=== PATIENT | female | born 1985 | race Caucasian/White ===

== ENCOUNTER 2018-03-24 18:45 | Emergency (ER) | payer OTHER, SELFPAY ==
[2018-03-24 18:46] VITALS: BP 171/106; PULSE 95; RESP 16; TEMP 37.1; O2SAT 100; BMI 55.8
--- NOTE | 2018-03-24 18:57 | CT_ITS ---
STUDY: CT ABDOMEN AND PELVIS WITHOUT CONTRAST REASON FOR EXAM: Female, 33 years old. Stomach cramping and labial abscess RADIATION DOSAGE (If Supplied By Facility): CTDIvol = ( 23.89 ) mGy, DLP = ( 1582.49 ) mGycm TECHNIQUE: Transaxial images were obtained from the dome of the diaphragm to the symphysis pubis without oral contrast, and without intravenous contrast. Sagittal and coronal images were reconstructed. Individualized dose optimization techniques were used for this CT. COMPARISON: None. FINDINGS: The visualized lung bases are unremarkable. The visualized portions of the heart are within normal limits. Normal liver. Normal gallbladder and extrahepatic biliary system. Normal spleen. Normal pancreas. Normal bilateral adrenal glands. Normal right kidney. Normal left kidney. Normal visualized stomach. Normal small intestine. Minor diverticular changes in the distal descending colon without evidence for acute diverticulitis. The appendix is visualized and appears normal. Normal abdominal aorta. Normal inferior vena cava. Normal retroperitoneum. Normal urinary bladder. Small fat-containing umbilical hernia. Lumbar spine demonstrates mild spondylosis.. CT/Abdomen/Pelvis without Cont IMPRESSION: Minor diverticular changes of the distal descending colon without evidence for acute diverticulitis No evidence for small bowel obstruction or pneumoperitoneum No acute abnormalities. Electronically Signed: Eduardo Justice MD at 20:55 EDT , Service support ,
--- NOTE | 2018-03-24 19:02 | ED.VISSUMM ---
- ER Visit Summary Date of Service: 03/24/18 Chief Complaint: Abdominal cramping History of Present Illness: The patient is a 33 F to the emergency department with pelvic cramping. Patient describes it as she feels like I am . She states she began to have cramping today. She does have a history of polycystic ovarian syndrome, but denies ever having significant ovarian cyst. She is currently sexually active but does not think that she is . She is also concerned because she felt a lump on her labia today. She denies any discharge. She denies any vaginal bleeding. She has had no back pain. She has no history of kidney stone. Physical Examination: Vital signs reviewed General: Well-nourished, well-developed Head: Normocephalic, atraumatic Eyes: Pupils equal and reactive, extraocular muscles intact Neck, supple, no lymphadenopathy Heart: Regular rate and rhythm Respiratory: No distress, clear bilaterally Abdomen: Soft, nontender, nondistended, no peritoneal signs Back: Nontender Extremities: Nontender, no edema, no cords Skin: Normal color no rash Neuro: Alert and oriented, no focal or lateralizing deficits Test Results: [] Emergency Department Course and Treatment: Pelvic exam was done with female director e learning. There is some fullness of the left Bartholin's gland, but no abscess. There is no purulent drainage or induration. I do not feel incision and drainage is necessary at this time, but did sales counselor the patient she is going to need to follow-up with SHAKE CUTTER as this may mature into an abscess that needs drainage. She was comfortable with this plan of care. Her labs do show mild leukocytosis but otherwise unremarkable. CT does not show any acute intra-abdominal process. At this time, I am unsure of the acute etiology of the patient's pain. She does have a history of polycystic ovarian syndrome. This could easily be a small ruptured cyst that is just not evident on imaging. She is resting comfortably after analgesics. At this time, I do for the patient is safe for outpatient therapy. She will be prescribed anti-inflammatories and I will place her on doxycycline to prevent any secondary infection of the Bartholin's gland. She will be discharged home. Treatment Plan: [] Disposition: Discharge Impression:. Bartholin's gland cyst 2. Abdominal pain This note was generated with [employer] software. It may contain incorrect words, spelling, and punctuation that were not noted in review of the chart prior to signing ED Disposition - Plan for ED Patient: Chief Complaint: Abd Pain Instructions: ED Abdominal Pain Unkn Cause, ED Bartholins Cyst No Infec Prescriptions: Dicyclomine HCl [Bentyl] 20 mg PO TIDAC #20 cap Naproxen [Naprosyn] 500 mg PO BID PRN #20 tab Doxycycline Monohydrate 100 mg PO BID #14 cap Referrals: Stephanie Hightower DO [STAFF PHYSICIAN] -
[2018-03-24 19:24] LABS: Red Blood Cells-Urine 0 SEEN /hpf (0-5)
[2018-03-24 19:28] LABS: Color, Urine Yellow (Yellow); Glucose, Dipstick Normal (Normal); Ketone-Dipstick Negative (Negative); Leukocyte Esterase-Dipstick 25 /ul (Negative); Nitrite-Dipstick Negative (Negative); Occult Blood-Urine 50 /ul (Negative); Protein-Dipstick 15 mg/dl (Negative); Urine Bilirubin Dipstick Negative (Negative); Urine Clarity Clear (Clear); Urine Urobilinogen Normal (Normal)
[2018-03-24] MEDS: Morphine 4 MG/ML Syringe IV (19:29)
[2018-03-24] MEDS: Ondansetron 4 MG/2 ML Vial IV (19:29)
[2018-03-24] MEDS: 0.9% Normal Saline 1,000 ML 125 ML IV (19:29)
[2018-03-24 19:50] LABS: Absolute Neutrophil Count 9.9 X10^3/uL (2.0-7.7); Basophil# 0.03 X10^3/uL; Basophil% 0.2 % (0-1); Eosinophil# 0.23 X10^3/uL; Eosinophils% 1.7 % (0-5); Hematocrit 37.2 % (37-47); Hemoglobin 11.4 g/dl (12.0-15.0); Lymphocyte % 16.3 % (19-41); Mean Corp Hgb Conc 30.6 g/gl (32-36); Mean Corpuscular Hgb 24.6 pg (27.0-32.0); Mean Corpuscular Volume 80.3 fL (81-99); Mean Platelet Vol. 10.4 fl (6.2-12.0); Monocyte# 1.14 X10^3/uL; Monocyte% 8.4 % (0-10); Neutrophil % 73.2 % (47-70); Platelet Count 175 K/mm3 (150-450); RBC Distribution Width CV 15.7 % (11.6-14.6); RBC Distribution Width SD 45.9 fl (35.1-43.9); Red Blood Count 4.63 M/mm3 (4.2-5.4); White Blood Count 13.5 K/mm3 (4.4-11.0)
[2018-03-24 19:51] LABS: POSITIVE COUNT NO; POSITIVE DIFFERENTIAL NO; POSITIVE MORPHOLOGY NO
[2018-03-24 19:51] LABS: Bacteria 1+ /hpf (None Seen); Mucous, Urine RARE /hpf (<or=2+); Squamous Epithelial Cells - UA 0-5 SEEN /hpf (5-10); White Blood Cells 0-5 SEEN /hpf (0-5)
[2018-03-24 20:01] LABS: ALB/GLOB Ratio 0.9 RATIO (0.9-2.4); AST(SGOT) 23 U/L (15-37); Alanine Aminotransfer ALT/SGPT 16 U/L (13-56); Albumin, Serum 3.4 g/dL (3.2-5.0); Alkaline Phosphatase 80 U/L (45-117); Anion Gap 9 (5-15); BUN 9 mg/dL (7-18); BUN/Creat Ratio 11.2 RATIO (10-20); Calcium,Total 8.6 mg/dL (8.5-10.1); Chloride 107 mmol/L (98-107); EST Glomerular Filtration Rate 89 mL/min (>60); Est Glom Filt Rate - Afr Amer 108 mL/min (>60); Estimated Creatinine Clearance 95.38 ml/min; Globulin 3.7 g/dL (2.2-4.2); Glucose 103 mg/dL (74-106); Potassium 4.1 mmol/L (3.5-5.1); Protein, Total 7.1 g/dL (6.4-8.2); Sodium Level 138 mmol/L (136-145)
[2018-03-24 20:07] LABS: Pregnancy, Serum, hCG Quali. NEGATIVE Negative (0-9 Nonpreg)
[2018-03-24 21:19] VITALS: BP 140/91; PULSE 75; RESP 18; O2SAT 100
--- NOTE | 2018-03-24 21:20 | ED.RN ---
REVIEWED D/C INSTRUCTIONS, FOLLOW UP CARE, PRESCRIPTIONS, AND S/S THAT WOULD WARRANT A RETURN TO THE ED WITH PT. PT VERBALIZED AN UNDERSTANDING AND DENIES FURTHER QUESTIONS FOR THIS RN. PT SKIN P/W/D, RESP EVEN AND UNLABORED, PT A&O X 3, NO DISTRESS NOTED. PT AMBULATED OUT OF ED, GAIT STEADY.
== END 2018-03-24 21:21 | disposition home or self-care (01) ==
PROVIDERS: Emergency Provider Emergency Medicine
DX: N75.0 Cyst of Bartholin's gland (principal); R10.2 Pelvic and perineal pain; E28.2 Polycystic ovarian syndrome; E66.9 Obesity, unspecified
CPT/HCPCS: 74176; 80053; 81001; 84703; 85025; 96361; 96374; 96375; 99285; J7030; A4216

== ENCOUNTER 2018-03-27 16:20 | Emergency (ER) | payer OTHER, SELFPAY ==
[2018-03-27 16:21] VITALS: BP 165/102; PULSE 110; RESP 18; TEMP 37.6; O2SAT 98; BMI 54.8
--- NOTE | 2018-03-27 17:02 | ED.VISSUMM ---
- ER Visit Summary Date of Service: 03/27/18 Chief Complaint: Left external cyst or abscess History of Present Illness: The patient is a 33 F has had a prior Bartholin's cyst or abscess. States she was seen here several days ago for ruptured ovarian cyst. At that time on her pelvic exam they saw inflammation of her labia and start her on doxycycline. She said she has been throwing up when she tries to keep it down. She is complaining of more pain and would like this drained. Physical Examination: Well-appearing female. No acute distress. Vital signs are stable and she is afebrile. She does not look septic or toxic. HEENT exam unremarkable. Neck nontender no lymphadenopathy. Lungs clear to auscultation bilaterally. Heart regular rhythm no murmur. Abdomen morbidly obese but soft nontender nondistended no organomegaly or masses. Normal bowel sounds no peritoneal signs. Moving all 4 extremities. Neurologically she is awake and alert. Her external region with the nurse present in the room on her labia minora on day there is no cellulitis. There is mild tenderness to palpation. This is probably an early Bartholin's cyst or abscess. There is minimal fluctuance. Test Results: None Emergency Department Course and Treatment: A female RN present in the room. The left Bartholin abscess was locally anesthetized with subcu lidocaine. Let had previously been applied. I then made 1/2-1 cm incision with an 11 blade. Expressed more than 5 cc of pus. Placed several inches of quarter inch packing gauze to allow this to continue to drain. And instructed patient of care and to follow-up with her DRILL GRINDER physician. She was given 2 [place] here for pain. Treatment Plan: [place] for pain. She is currently on doxycycline which she will continue. And follow-up with [facility] [place]. Disposition: Discharge Impression: Left labia minora: Abscess Incision and drainage by ER This note was generated with [employer] dictation software. It may contain incorrect words, spelling, and punctuation that were not noted in review of the chart prior to signing ED Disposition - Plan for ED Patient: Chief Complaint: Abscess Referrals: Care Physician,No Primary [Primary Care Provider] -
--- NOTE | 2018-03-27 17:05 | ED.DCSUM_ITS ---
- ER Visit Summary Date of Service: 03/27/18 Chief Complaint: Left external cyst or abscess History of Present Illness: The patient is a 33 F has had a prior Bartholin's cyst or abscess. States she was seen here several days ago for ruptured ovarian cyst. At that time on her pelvic exam they saw inflammation of her labia and start her on doxycycline. She said she has been throwing up when she tries to keep it down. She is complaining of more pain and would like this drained. Physical Examination: Well-appearing female. No acute distress. Vital signs are stable and she is afebrile. She does not look septic or toxic. HEENT exam unremarkable. Neck nontender no lymphadenopathy. Lungs clear to auscultation bilaterally. Heart regular rhythm no murmur. Abdomen morbidly obese but soft nontender nondistended no organomegaly or masses. Normal bowel sounds no peritoneal signs. Moving all 4 extremities. Neurologically she is awake and alert. Her external region with the nurse present in the room on her labia minora on day there is no cellulitis. There is mild tenderness to palpation. This is probably an early Bartholin's cyst or abscess. There is minimal fluctuance. Test Results: None Emergency Department Course and Treatment: A female RN present in the room. The left Bartholin abscess was locally anesthetized with subcu lidocaine. Let had previously been applied. I then made 1/2-1 cm incision with an 11 blade. Expressed more than 5 cc of pus. Placed several inches of quarter inch packing gauze to allow this to continue to drain. And instructed patient of care and to follow-up with her CAMP ATTENDANT physician. She was given 2 [place] here for pain. Treatment Plan: [place] for pain. She is currently on doxycycline which she will continue. And follow-[facility] with [email or web address] Disposition: Discharge Impression: Left labia minora: Abscess Incision and drainage by ER This note was generated with [employer] dictation software. It may contain incorrect words, spelling, and punctuation that were not noted in review of the chart prior to signing ED Disposition - Plan for ED Patient: Chief Complaint: Abscess Referrals: Care Physician,No Primary [Primary Care Provider] -
[2018-03-27] MEDS: Lidocaine/Epi/Tetracaine 50 ML 1 APPLIC TOPICAL (17:13)
[2018-03-27 19:15] VITALS: BP 150/109; PULSE 100; RESP 18; O2SAT 98
--- NOTE | 2018-03-27 19:16 | ED.DEP ---
ED Disposition - Plan for ED Patient: Disposition: Home or Assisted Living Chief Complaint: Abscess Instructions: ED Abscess IandD Prescriptions: Hydrocodone/Acetaminophen [[place] 5-325 Tablet] 1 ea PO Q4H PRN PRN #20 tab PRN Reason: Pain Referrals: Alma Cesar MD [STAFF PHYSICIAN] - As soon as possible Additional Instructions: Warm soaks to allow this to continue to drain. Motrin and limited [place] for pain. Remove the packing in 4 days. If it falls out before that you cannot replace it. Call and follow-up with your PSYCHOSOCIAL REHABILITATION COUNSELOR physician.
== END 2018-03-27 19:25 | disposition home or self-care (01) ==
PROVIDERS: Emergency Provider Emergency Medicine
DX: N75.1 Abscess of Bartholin's gland (principal); Z72.0 Tobacco use; Z79.2 Long term (current) use of antibiotics
CPT/HCPCS: 56420; 99285

== ENCOUNTER 2019-01-17 09:58 | Emergency (ER) | payer MEDICAID, SELFPAY ==
[2019-01-17 09:59] VITALS: BP 140/86; PULSE 76; RESP 16; TEMP 36.4; O2SAT 94; BMI 53.6
--- NOTE | 2019-01-17 10:19 | RAD_ITS ---
STUDY: X-RAY - LEFT ANKLE REASON FOR EXAM: Female, 34 years old. Left ankle injury, pain, soft tissue swelling TECHNIQUE: 3 view(s) of the ankle. COMPARISON: None. FINDINGS: Normal visualized distal tibia and fibula. Transverse fracture (nondisplaced) of the distal lateral malleolus identified with mild overlying soft tissue swelling. Normal tibiotalar articulation and ankle mortise. There is a small bony density medial to the talus seen on the AP view. There is mild soft tissue swelling. The visualized subtalar, talonavicular, calcaneocuboid and tarsal articulations are normal. The soft tissue structures are otherwise unremarkable. RAD/Ankle min 3 Views IMPRESSION: 1. Nondisplaced [place] A lateral malleolus fracture. 2. Suspect small avulsion injury of the medial ankle adjacent to talus. Electronically Signed: Jae Witt MD at 11:00 EDT , Service support ,
--- NOTE | 2019-01-17 10:21 | ED.DCSUM_ITS ---
- ER Visit Summary Date of Service: 01/17/19 Chief Complaint: [Injury left ankle] History of Present Illness: The patient is a 34 F [presents the emergency department via EMS from her quaker. Patient states that she was walking when her ankle inverted and she heard a pop. Patient fell to the floor and landed on her right knee. Denies striking her head or loss of consciousness. Patient unable to bear weight afterwards. Patient rates her pain a 10 out of 10.] Physical Examination: [HEENT-PERRLA, EOMI. Cranial nerves II through XII grossly intact. TMs clear. Mucous membranes moist. No adenopathy. Cardiovascular-regular rate and rhythm without murmur or ectopy Lungs-clear to auscultation, chest wall stable without crepitus or subcu emphysema Abdomen-normoactive bowel sounds, soft, nontender, no rebound or rigidity, no peritoneal signs. Extremities-intact ?4, normal range of motion, normal pulses. Left ankle- patient has soft tissue swelling over the lateral malleolus with tenderness to palpation. No obvious deformity otherwise. Patient neurovascular intact di stally. No pain at the proximal fibular head. No pain at the base of the fifth metatarsal.] Test Results: [X-rays of the left ankle showed fracture of the distal fibula avulsion type [place] A.] Emergency Department Course and Treatment: [Patient was placed in a walking boot and given crutches. Patient was given 1 [place] for pain.] Treatment Plan: [Patient advised to ice and elevate the extremity. Patient to follow-up with orthopedics within next 3-5 days. Patient given a prescription for [place] for pain.] Disposition: [Discharged home in stable condition] Impression: [Left distal fibula fracture] This note was generated with [employer] dictation software. It may contain incorrect words, spelling, and punctuation that were not noted in review of the chart prior to signing ED Disposition - Plan for ED Patient: Referrals: Care Physician,No Primary [Primary Care Provider] -
[2019-01-17] MEDS: HYDROcodone Bitartrate/Apap 5/325 Tablet PO (10:37)
--- NOTE | 2019-01-17 10:58 | DCINST.ED_ITS ---
ED Disposition - Plan for ED Patient: Instructions: ED Fx Ankle Lateral Malleolus Prescriptions: Hydrocodone Bitart/Apap 5-325 [[place] 5MG-325MG] 1 tab PO Q4H PRN PRN 2 Days #20 tab PRN Reason: Pain Referrals: Care Physician,No Primary [Primary Care Provider] - Piero Beauchamp DO [STAFF PHYSICIAN] - 3-5 Days
== END 2019-01-17 11:35 | disposition home or self-care (01) ==
LOC: ED 10:39
PROVIDERS: Emergency Provider Emergency Medicine
DX: S82.832A Other fracture of upper and lower end of left fibula, initial encounter for closed fracture (principal); Z72.0 Tobacco use; X50.1XXA Overexertion from prolonged static or awkward postures, initial encounter; Y93.01 Activity, walking, marching and hiking; Y92.22 Religious institution as the place of occurrence of the external cause; Y99.8 Other external cause status
CPT/HCPCS: 73610; 99285

== ENCOUNTER → 2019-01-23 13:15 | Outpatient (CLI) | payer MEDICAID, SELFPAY ==
[2019-01-23 12:45] VITALS: BMI 53.6
--- NOTE | 2019-01-23 13:20 | RAD_ITS ---
STUDY: X-RAY - RIGHT ANKLE REASON FOR EXAM: Female, 34 years old. Comparison images TECHNIQUE: Three view(s) of the ankle were obtained. COMPARISON: Left ankle images dated January 17, 2019 FINDINGS: Bones: There are no acute osseous abnormalities. There are small spurs off the inferior and posterior calcaneus. Joints: The visualized joints are unremarkable. Soft tissues: Coarse calcific densities are seen in the soft tissues just below the medial malleolus. There is very mild soft tissue swelling. RAD/Ankle min 3 Views IMPRESSION: No acute abnormalities are seen. Probable old avulsion fragments are seen below the medial malleolus. Electronically Signed: Stephanie Alonzo MD at 14:13 EDT , Service support ,
== END ==
PROVIDERS: Referring Provider Physician Assistant; Visit Provider Physician Assistant
DX: M25.571 Pain in right ankle and joints of right foot (principal)
CPT/HCPCS: 73610

== ENCOUNTER 2019-12-30 19:25 | Outpatient (CLI) | payer MEDICAID, SELFPAY ==
[2019-01-23 12:45] VITALS: BMI 53.6
[2019-12-30 19:57] VITALS: PULSE 92; O2SAT 97
[2019-12-30 19:59] VITALS: BP 123/57; PULSE 90; TEMP 97.8
[2019-12-30 20:06] VITALS: BMI 265.3
[2019-12-30 20:34] LABS: ROM Internal Control Test YES-OK TO RESULT pt. (Internal QC); ROM Patient Test Negative (Negative)
--- NOTE | 2019-12-31 00:18 | OB.TRI.NOTE ---
History of Present Illness Date of Service: 12/31/19 Was patient seen by the physician?: No Reason For Visit: RULE OUT RUPTURE Date of Service: 12/30/19 Final RENEE: 02/08/20 Final RENEE Source: US <20 weeks Gestational age: 34 Weeks and 3 Days Allergies Penicillins Allergy (Verified 12/30/19 21:09) Hives Laboratory Studies: Laboratory Tests 12/30/19 Range/Units 19:42 Vag Amniotic Fld Detect Negative (Negative) NST - FHR Rate Baby A Baseline: 130 Variability:: Moderate Accelerations:: 15 x 15 Decelerations:: None NST Reactive:: Yes FHR Category:: Category I Uterine Activity:: irritability at times Impression/Plan 34yo @ 34+ weeks, membranes intact, not in labor 1) ROM+ negative 2) cerclage in place 3) Dc home - follow up as scheduled in office
[2020-01-10 23:16] VITALS: TEMP 36.8
[2020-01-10 23:17] VITALS: BP 107/60; PULSE 96
== END 2019-12-30 21:25 | disposition home or self-care (01) ==
LOC: WPOUT 19:49 → OBT 19:49
PROVIDERS: Visit Provider Obstetrics & Gynecology
DX: Z03.71 Encounter for suspected problem with amniotic cavity and membrane ruled out (principal)
CPT/HCPCS: 59025; 59050; 84112; 99218; G0378

== ENCOUNTER 2020-01-10 22:40 | Outpatient (CLI) | payer MEDICAID, SELFPAY ==
[2020-01-10 23:17] VITALS: BP 107/60; PULSE 96; TEMP 36.8; O2SAT 98
[2020-01-10 23:18] VITALS: PULSE 92; O2SAT 98
[2020-01-10 23:30] VITALS: BMI 49.2
[2020-01-11 00:47] LABS: Glucose, Dipstick 1000 mg/dl (Normal); Ketone-Dipstick 5 mg/dl (Negative); Leukocyte Esterase-Dipstick 25 /ul (Negative); Mucous, Urine 0 SEEN /hpf (<or=2+); Nitrite-Dipstick Negative (Negative); Occult Blood-Urine 10 /ul (Negative); Protein-Dipstick 15 mg/dl (Negative); Urine Bilirubin Dipstick Negative (Negative); Urine Urobilinogen 1 mg/dl (Normal)
[2020-01-11 00:49] LABS: Color, Urine Yellow (Yellow); Urine Clarity Sl Cldy (Clear)
[2020-01-11 00:54] LABS: Amorphous Sediment 1+; Bacteria 2+ /hpf (None Seen); Red Blood Cells-Urine 0-5 SEEN /hpf (0-5); Squamous Epithelial Cells - UA 0-5 SEEN /hpf (5-10); White Blood Cells 5-10 SEEN /hpf (0-5)
--- NOTE | 2020-01-12 12:47 | OB.TRI.NOTE ---
History of Present Illness Was patient seen by the physician?: No Reason For Visit: C/O Date of Service: 01/10/20 Final RENEE: 02/08/20 Final RENEE Source: US >20 weeks Gestational age: 36 Weeks and 1 Days Allergies Penicillins Allergy (Verified 01/10/20 23:30) Hives Laboratory Studies: Laboratory Tests 01/11/20 Range/Units 00:30 Urine Color Yellow (Yellow) Urine Clarity Sl Cldy (Clear) Urine pH 5.0 (5.0 - 8.0) Ur Specific [place] 1.030 (1.002-1.030) Urine Protein 15 H (Negative) mg/dl Urine Glucose (UA) 1000 H (Normal) mg/dl Urine Ketones 5 H (Negative) mg/dl Urine Occult Blood 10 H (Negative) /ul Urine Nitrite Negative (Negative) Urine Bilirubin Negative (Negative) mg/dL Urine Urobilinogen 1 H (Normal) mg/dl Ur Leukocyte Esterase 25 H (Negative) /ul Urine RBC 0-5 SEEN (0-5) /hpf Urine WBC 5-10 SEEN (0-5) /hpf Ur Squamous Epith Cells 0-5 SEEN (5-10) /hpf Amorphous Sediment 1+ Urine Bacteria 2+ (None Seen) /hpf Urine Mucus 0 SEEN (<or=2+) /hpf Physical Exam Vitals: Vital Signs Temp Pulse BP Pulse Ox 98.3 F 92 107/60 98 01/10/20 23:17 01/10/20 23:18 01/10/20 23:17 01/10/20 23:18 NST - FHR Rate Baby A Baseline: 135 Variability:: Moderate Accelerations:: 15 x 15 NST Reactive:: Yes Uterine Activity:: Irregular Impression/Plan NST reactive for threatened PTL
== END 2020-01-11 02:05 | disposition home or self-care (01) ==
LOC: WPOUT 23:18 → WP 23:19
PROVIDERS: Visit Provider Advanced Practice Midwife
DX: O47.03 False labor before 37 completed weeks of gestation, third trimester (principal); Z3A.36 36 weeks gestation of pregnancy
CPT/HCPCS: 59025; 59050; 81001; 87086; 87088; 99218; G0378

== ENCOUNTER 2020-01-19 05:16 | Inpatient (IN) | payer MEDICAID, SELFPAY ==
[2020-01-19] VITALS (19 sets, daily range): BP systolic 85–121; BP diastolic 37–72; PULSE 68–96; RESP 16–18; TEMP 36.1–36.9; O2SAT 96–100; BMI 49.4
[2020-01-19] MEDS: Lactated Ringers 1,000 ML 999 ML IV (05:35)
[2020-01-19 05:56] LABS: Bedside Glucose 133 mg/dL (70-110)
[2020-01-19 06:05] LABS: Absolute Lymphocyte Count 2.09 X10^3/uL (0.83-4.51); Absolute Neutrophil Count 7.6 X10^3/uL (2.0-7.7); Basophil# 0.05 X10^3/uL; Basophil% 0.5 % (0-1); Eosinophil# 0.13 X10^3/uL; Eosinophils% 1.2 % (0-5); Hematocrit 34.3 % (37-47); Hemoglobin 10.8 g/dL (12.0-15.0); Lymphocyte # 2.09 X10^3/ul (4.0); Lymphocyte % 19.4 % (19-41); Mean Corp Hgb Conc 31.5 g/dL (32-36); Mean Corpuscular Hgb 25.6 pg (27.0-32.0); Mean Corpuscular Volume 81.3 fL (81-99); Mean Platelet Vol. 11.6 fl (6.2-12.0); Monocyte# 0.78 X10^3/uL; Monocyte% 7.2 % (0-10); NRBC Flagged by Analyzer 0 % (0-5); Neutrophil # 7.64 X10^3/uL (2.7-7.7); Neutrophil % 70.7 % (47-70); Platelet Count 165 K/mm3 (150-450); RBC Distribution Width CV 15.8 % (11.6-14.6); RBC Distribution Width SD 46.5 fl (35.1-43.9); Red Blood Count 4.22 M/mm3 (4.2-5.4); White Blood Count 10.8 K/mm3 (4.4-11.0)
[2020-01-19 06:38] LABS: Amphetamine Urine VISTA NEGATIVE (<1000 ng/mL); Barbiturate Urine VISTA NEGATIVE (< 200 ng/mL); Benzodiazepine Urine VISTA NEGATIVE (< 200 ng/mL); Cocaine Urine VISTA NEGATIVE (< 300 ng/mL); Ecstacy Urine VISTA NEGATIVE (< 500 ng/mL); Methadone Urine VISTA NEGATIVE (< 300 ng/mL); PCP Urine VISTA NEGATIVE (< 25 ng/mL); THC Urine VISTA NEGATIVE (< 50 ng/mL); Vista UDS pH Range 5
[2020-01-19] MEDS: Lactated Ringers 1,000 ML 150 ML IV (06:45)
[2020-01-19] MEDS: Sodium Citrate/Citric Acid 30 ML UDC PO (07:09)
--- NOTE | 2020-01-19 08:20 | FALS_PTH ---
PATIENT: PATI MARTINEZ LOC: [facility] U#:[id number] AGE/SX: 35/F ROOM: WP005 RE01/19/[address]: Dr. Nubia Moctezuma MD : 1985 BED: 1 DIS: 01/22/2020 SPEC #: [id number] RECD: 01/19/20 12:10 STATUS: ROSE ROMMEL #: [id number] TG: 01/19/20 08:[address]: Nubia Moctezuma DEPT: SURGICAL PATHOLOGY RECD BY: Srikanth Zuniga ENTERED: 01/19/20 12:18 SP TYPE: FALL TUBES OTHR DR: No Primary Care Phys Tissues: Fallopian tube Procedures: Surgery Specimen Level II HEADER OPERATION: Tubal ligation PRE-OP DIAGNOSIS: Sterilization, repeat TISSUE SUBMITTED: Fallopian tubes, right with suture MICROSCOPIC DIAGNOSIS Right and left fallopian tubes, bilateral partial salpingectomies: Two complete segments of fallopian tubes with no pathologic change. AM:eric 01/20/20 MICROSCOPIC DESCRIPTION Slides are reviewed. GROSS DESCRIPTION Received is one container labeled with the patient's name and designated bilateral fallopian tubes, right with string. The specimen consists of two tubular pieces of zaldivar soft tissue with the right identified with a string. The right fallopian tube measures 1 cm in length and 0.6 cm in diameter. The left fallopian tube measures 1 cm in length and 0.6 cm in diameter. The entire specimen is submitted in two cassettes as follows: 1 - right fallopian tube, 2 - left fallopian tube. Both pieces will be sectioned at the time of embedding. / WILIAN:eric 01/19/20 TC:4 CPT: 26270 x2
--- NOTE | 2020-01-19 09:06 | PCM.HP.OB ---
History Date of Admission: 01/19/20 Final RENEE: 02/08/20 Final RENEE Source: US >20 weeks Gestational age: 37 Weeks and 1 Days Medical History: Medical History (Last Updated 01/19/20 @ 09:[address] Nubia Moctezuma) delivery delivered O82 Gestational diabetes O24.419 History of bronchitis Z87.09 Surgical History: Surgical History (Last Updated 01/19/20 @ 09:[address] Nubia Moctezuma) History of cervical cerclage Z98.890 Allergies Penicillins Allergy (Verified 01/19/20 06:54) Hives Home Medications: Home Medications Vits [Prenatabs FA] 1 tab PO DAILY 12/30/19 Smoking Status: Current every day smoker Substance Use Type: Marijuana Number of Fetus(es): 1 History Past Pregnancies: Past Pregnancies Delivery Date Name GA/ Weeks Outcome Route Wt Sex Labor Length Anesthesia Delivery Location Provider FOB Physical Exam Vitals: Vital Signs Temp Pulse BP Pulse Ox 97.7 F L 85 121/72 H 96 01/19/20 05:59 01/19/20 05:59 01/19/20 05:59 01/19/20 05:59 Assessment/Plan This is a 35 year-old, G3, P1101, at 37&1 weeks gestational age. Admit for repeat with bilateral tubal ligation. GDM - check BS pre & post-op and FBS in AM Pre-op ancef ordered Please see [facility] H&P and prenatals Cough - patient with h/o recurrent bronchitis, s/p primary care aval last week
--- NOTE | 2020-01-19 09:08 | PCM.OPRPT ---
Report of Operation Surgery/Procedure Performed:: Low transverse and bilateral tubal ligation Description of Surgical Findings:: Normal maternal uterus and adnexa Delivery Classification: Scheduled Final RENEE: 02/08/20 Gestational age: 37 Weeks and 1 Days leadership intern: Patricia Gandhi Type of Anesthesia:: Spinal Date of Procedure: 01/19/20 Pre-Operative Diagnosis: (1) Poorly controlled gestational diabetes (2) Prior section (3) Sterilization request Post-Operative Diagnosis: Same Indications for : Repeat Elective , Desires elective sterilization Description of Procedure: Patient taken to OR where spinal anesthesia was placed. She was prepped and draped in the normal sterile fashion in a dorsal supine position with a leftward tilt. After ensuring adequacy of anesthesia the Pfannensteil skin incision was made and carried through to the underlying fascia with a scalpel. The fascia was incised in the midline and carried laterally with the Martin scissors. The rectus muscles were in the midline and the peritoneum was entered carefully. The bladder flap was dissected down carefully with the Metzenbaum scissors and blunt dissection. The uterus was incised in a transverse fashion and then incision extended with cephalocaudad traction. The fetus was vertex and the head was elevated to the uterine incision. With fundal pressure the head delivered. head was gently guided to allow delivery of anterior and posterior shoulders. No excess traction placed on head. Body delivered and 3VC clamped & cut in slightly delayed fashion. Then the was handed off to the waiting RN. The placenta was delivered with gentle traction and fundal massage and the uterus was exteriorized and cleared of all clots and debris. The uterine incision was closed with 1 vicryl suture in a running locked fashion. The bovie was used to obtain further hemostasis of the uterine incision. A second imbricating layer of monocryl was placed. 2 additional figure of 8 sutures was placed on the uterine incision to further obtain hemostasis. Attention then turned to the fallopian tubes. Right fallopian tube grasped with a gael, doubly suture ligated and tubal segment excised. This procedure was repeat on the left fallopian tube. The uterus was returned to the peritoneal cavity. Tubal ligation sites were both checked and confirmed hemostatic with sutures intact. The pelvis was irrigated & then cleared of all clots and debris. The uterine incision was reexamined and found to be hemostatic. Some joana was placed over the uterine incision due to the denuded areas. The fascia was closed with looped PDS suture in a running standard fashion. 1% lidocaine was injected to the skin to provide additional postoperative analgesia. The subcutaneous tissue was examined & any bleeding bovie cauterized. The subcutaneous tissue was reapproximated with plain gut suture. The skin was closed in a subcuticular fashion by the PUMPING STATION SUPERVISOR with me present in the labor and delivery suite. I performed the remainder of the procedure w/ assistance. Amniotic Membrane Rupture Type: Artificial Amniotic Fluid Description: Clear Placenta Disposition: [facility] Drain: Vázquez to straight drain Fluids Replaced: 1,000ml Cord Entanglement: None Cord Vessel Description: 3 Vessels Esitmated Blood Loss (ml): 700ml Gender: Male - Zach, weight = 8-8 (1 minute): 8 (5 minute): 9 Delayed cord clamping: Yes Antibiotic Given: Ancef 3 grams IV x1 Complications: None - Admit VTE Documentation VTE Present on Admission: No
[2020-01-19] MEDS: Lactated Ringers 1,000 ML 100 ML IV ×2 (09:56→20:14)
[2020-01-19] MEDS: Oxytocin 30 units/NS 500 ml 30 UNITS/500 ML IV.SOLN 167 UNITS IV (09:57)
[2020-01-19 11:40] LABS: Bedside Glucose 143 mg/dL (70-110)
[2020-01-19] MEDS: Ketorolac 30 MG/ML Syringe IV ×2 (14:03→20:18)
[2020-01-19] MEDS: Senna/Docusate Sodium 1 Tablet PO (17:29)
[2020-01-19] MEDS: Enoxaparin 40 MG/0.4 ML Syringe SC (20:19)
[2020-01-20] VITALS (8 sets, daily range): BP systolic 101–110; BP diastolic 40–54; PULSE 64–78; RESP 16–18; TEMP 36.2–36.5; O2SAT 96–99
[2020-01-20] MEDS: Acetaminophen 500 MG Tablet 1000 MG PO (00:19)
[2020-01-20] MEDS: Ketorolac 30 MG/ML Syringe IV ×4 (01:57→20:04)
[2020-01-20 06:11] LABS: Bedside Glucose 121 mg/dL (70-110)
[2020-01-20 06:15] LABS: Hematocrit 25.9 % (37-47); Hemoglobin 8.2 g/dL (12.0-15.0); Mean Corp Hgb Conc 31.7 g/dL (32-36); Mean Corpuscular Hgb 26.1 pg (27.0-32.0); Mean Corpuscular Volume 82.5 fL (81-99); Mean Platelet Vol. 11.6 fl (6.2-12.0); Platelet Count 124 K/mm3 (150-450); RBC Distribution Width CV 15.9 % (11.6-14.6); RBC Distribution Width SD 47.9 fl (35.1-43.9); Red Blood Count 3.14 M/mm3 (4.2-5.4); White Blood Count 10.6 K/mm3 (4.4-11.0)
--- NOTE | 2020-01-20 08:21 | PN.OBGYN_ITS ---
Subjective: Patient seen at bedside, doing well. Patient reports good pain control. Mild lochia. Voiding without difficulty. She has been up and ambulating. She denies any dizziness, chest pain, shortness of breath. Breast and bottlefeeding at this time. Denies passing flatus at this time. Is tolerating a regular diet. - Physical Exam Vitals/I&O's: Vital Signs Temp Pulse Resp BP Pulse Ox 97.1 F L 78 18 101/40 L 99 01/20/20 04:35 01/20/20 07:00 01/20/20 07:00 01/20/20 04:35 01/20/20 07:00 Oxygen Delivery Method Room Air Weight: 139 kg Body Mass Index (BMI) 49.4 Intake and Output for Last 24 Hours 01/18/20 01/19/20 01/20/20 23:59 23:59 23:59 Intake Total 4917.50 / 4917.50 1393.33 / 1393.33 Output Total 1150 / 1150 1300 / 1300 Balance 3767.50 / 3767.50 93.33 / 93.33 General: Alert, Oriented x3 Abdomen: Soft, Non-Distended, - - fundus is firm, dressing dry and intact Extremities: Capillary Refill Less than 3 Seconds Laboratory Results 01/19/20 11:36: POC Glucose 143 H 01/20/20 05:58: POC Glucose 121 H 01/20/20 06:00: WBC 10.6, RBC 3.14 L, Hgb 8.2 L, Hct 25.9 L, MCV 82.5, MCH 26.1 L, MCHC 31.7 L, RDW Std Deviation 47.9 H, RDW Coeff of Ankit 15.9 H, Plt Count 124 L, MPV 11.6 Current Medications Acetaminophen (Tylenol) 1,000 mg PO Q8H PRN PRN Reason: Pain Score 1-3/10 Last Admin: 01/20/20 00:19 Dose: 1,000 mg Documented by: Bisacodyl (Dulcolax) 10 mg RECTAL UD PRN PRN Reason: If no BM Enoxaparin Sodium (Lovenox) 40 mg SC DAILY@0600 [facility] Hydrocortisone (Hytone) 1 applic TOPICAL TID PRN PRN; Protocol PRN Reason: Discomfort Naloxone HCl 4 mg/ Dextrose 504 mls @ 0 mls/hr IV .Q0M PRN; Protocol PRN Reason: Respiratory depression Ibuprofen (Motrin) 600 mg PO Q6H PRN PRN PRN Reason: Pain Score 1-3/10 Ketorolac Tromethamine (Toradol (Bkc)) 30 mg IV Q6H [facility] Stop: 01/21/20 08:01 Last Admin: 01/20/20 01:57 Dose: 30 mg Documented by: Methylergonovine Maleate (Methergine) 0.2 mg IM X1 PRN PRN Reason: Uterine Atony Naloxone HCl (Narcan) 0.02 mg IV Q1M PRN PRN Reason: RR <10 and pt unresponsive Ondansetron HCl (Zofran) 4 mg IV Q4H PRN PRN PRN Reason: Nausea Oxycodone HCl (Oxyir) 5 - 10 mg PO Q4H PRN PRN PRN Reason: Pain Score 4-10/10 Multivit/Folic Acid/Iron (Prenatabs Fa) 1 tablet PO DAILY@1200 TAN[facility] Last Admin: 01/19/20 13:35 Dose: Not Given Documented by: Prochlorperazine Edisylate (Compazine Iv) 10 mg IV Q6H PRN PRN PRN Reason: NAUSEA Senna/Docusate Sodium (Senokot-S, Irlanda-Colace) 0 tablet PO DAILY PRN PRN Reason: Constipation Last Admin: 01/19/20 17:29 Dose: 1 tablet Documented by: Simethicone (Mylicon) 80 mg PO PCHS PRN PRN Reason: Indigestion/stomach pain Sodium Chloride () 5 - 15 ml IV UD PRN PRN Reason: SALINE FLUSH Medical Necessity - Tobacco Use Smoking Status: Current every day smoker Assessment/Plan POD#1, doing well routine care pain mgmt dc home
[2020-01-20] MEDS: 0.9% Saline Lock 10 ML Syringe IV ×3 (08:46→20:04)
[2020-01-20] MEDS: Enoxaparin 40 MG/0.4 ML Syringe SC (10:25)
[2020-01-20] MEDS: Prenatal Vits Tablet 1 TABLET PO (10:26)
[2020-01-20] MEDS: oxyCODONE 5 MG Tablet PO ×3 (10:26→21:12)
[2020-01-20] MEDS: Senna/Docusate Sodium 1 Tablet PO (10:26)
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
[2020-01-20] MEDS: Benzonatate 100 MG Capsule PO (22:38)
[2020-01-21] MEDS: 0.9% Saline Lock 10 ML Syringe IV ×2 (01:37→08:17)
[2020-01-21] MEDS: Ketorolac 30 MG/ML Syringe IV ×2 (01:37→08:15)
[2020-01-21 01:41] VITALS: BP 106/47; PULSE 74; RESP 14; TEMP 37.1
[2020-01-21] MEDS: oxyCODONE 5 MG Tablet PO ×3 (04:11→20:41)
[2020-01-21] MEDS: Enoxaparin 40 MG/0.4 ML Syringe SC (05:39)
--- NOTE | 2020-01-21 07:24 | PCM.PN.OB ---
Subjective: Pain well controlled. Average lochia. Had a bowel movement. Tolerating regular diet. Working on breast-feeding. is under the bili lights. - Physical Exam Vitals/I&O's: Vital Signs Temp Pulse Resp BP Pulse Ox 98.7 F 74 14 106/47 L 96 01/21/20 01:41 01/21/20 01:41 01/21/20 01:41 01/21/20 01:41 01/20/20 14:07 Oxygen Delivery Method Room Air Weight: 139 kg Body Mass Index (BMI) 49.4 Intake and Output for Last 24 Hours 01/19/20 01/20/20 01/21/20 23:59 23:59 23:59 Intake Total 4917.50 / 4917.50 1393.33 / 1393.33 Output Total 1150 / 1150 1700 / 1700 Balance 3767.50 / 3767.50 -306.67 / -306.67 General: Alert, Cooperative, No apparent distress Abdomen: Soft, Non-Distended, Obese, Tender - Appropriately Extremities: Edema - trace Skin: Incision - Her bandage is clean dry and intact Current Medications Acetaminophen (Tylenol) 1,000 mg PO Q8H PRN PRN Reason: Pain Score 1-3/10 Last Admin: 01/20/20 00:19 Dose: 1,000 mg Documented by: Benzonatate (Tessalon Perle) 100 mg PO TID PRN PRN PRN Reason: COUGH Last Admin: 01/20/20 22:38 Dose: 100 mg Documented by: Bisacodyl (Dulcolax) 10 mg RECTAL UD PRN PRN Reason: If no BM Enoxaparin Sodium (Lovenox) 40 mg SC DAILY@0600 [facility] Last Admin: 01/21/20 05:39 Dose: 40 mg Documented by: Hydrocortisone (Hytone) 1 applic TOPICAL TID PRN PRN; Protocol PRN Reason: Discomfort Naloxone HCl 4 mg/ Dextrose 504 mls @ 0 mls/hr IV .Q0M PRN; Protocol PRN Reason: Respiratory depression Ibuprofen (Motrin) 600 mg PO Q6H PRN PRN PRN Reason: Pain Score 1-3/10 Ketorolac Tromethamine (Toradol (Bkc)) 30 mg IV Q6H [facility] Stop: 01/21/20 08:01 Last Admin: 01/21/20 01:37 Dose: 30 mg Documented by: Methylergonovine Maleate (Methergine) 0.2 mg IM X1 PRN PRN Reason: Uterine Atony Naloxone HCl (Narcan) 0.02 mg IV Q1M PRN PRN Reason: RR <10 and pt unresponsive Ondansetron HCl (Zofran) 4 mg IV Q4H PRN PRN PRN Reason: Nausea Oxycodone HCl (Oxyir) 5 - 10 mg PO Q4H PRN PRN PRN Reason: Pain Score 4-10/10 Last Admin: 01/21/20 04:11 Dose: 5 mg Documented by: Multivit/Folic Acid/Iron (Prenatabs Fa) 1 tablet PO DAILY@1200 T[facility] Last Admin: 01/20/20 10:26 Dose: 1 tablet Documented by: Prochlorperazine Edisylate (Compazine Iv) 10 mg IV Q6H PRN PRN PRN Reason: NAUSEA Senna/Docusate Sodium (Senokot-S, Irlanda-Colace) 0 tablet PO DAILY PRN PRN Reason: Constipation Last Admin: 01/20/20 10:26 Dose: 2 tablet Documented by: Simethicone (Mylicon) 80 mg PO PCHS PRN PRN Reason: Indigestion/stomach pain Last Admin: 01/20/20 22:56 Dose: 80 mg Documented by: Sodium Chloride () 5 - 15 ml IV UD PRN PRN Reason: SALINE FLUSH Last Admin: 01/21/20 01:37 Dose: 10 ml Documented by: Medical Necessity - Tobacco Use Smoking Status: Current every day smoker Assessment/Plan Postoperative day #2 status post repeat section. Patient is doing well. is breast-feeding and under bili lights. If is okay to be discharged home today, patient desires discharge home with routine instructions and prescription.
--- NOTE | 2020-01-21 07:29 | DCINST_ITS ---
Discharge Diet: No Restrictions Discharge Activity: Return to Normal Activity, May Not Drive - for 2 weeks, May not drive while taking narcotic pain medications., May Shower, May Take a Tub Bath - in 7 days. May resume sexual activity in: 4-6 weeks Lifting Restrictions: 20 pounds Additional Activity Instructions:: Nothing in the vagina for 4-6 weeks. You may return to work/school in 6 weeks. Call your doctor if your incision/area has: Continuous Slow Oozing, Sudden Increased Bleeding, Increased Pain/ Swelling, Increased Redness, Foul Smelling Discharge Call your doctor if you observe: Fever of 101 or Higher, Using more than one pad per hour - for 2 hours Suture Line Care: Avoid Pulling/Pushing, Avoid Pinching/Bending Cleanse incision/area with: Keep Dressing Clean & Dry Additional Instructions: If you experience any of the following, contact your healthcare provider. * Bleeding that soaks a pad every hour for 2 hours * Fever 100.4 or higher * Unrelieved incision or abdominal pain * Swelling, redness, discharge or bleeding from your incision or episiotomy site * Your incision begins to separate * Problems urinating (including inability to urinate or burning while urinating). * Visual changes * Severe headache * Flu-like symptoms * Pain or redness in one of both of your breasts * Pain, warmth, tenderness or swelling in your legs, especially the calf area * Frequent nausea and vomiting * Symptoms of depression or anxiety If you experience any of the following, call 911 or go to the nearest Emergency Room. * Chest pain * Problems breathing * Seizure activity * Partial or complete paralysis of a body part, slurred speech, weakness or drooping of the face, or a sudden inability to walk or hold your balance Allergies/Adverse Reactions: Allergies Penicillins Allergy (Verified 01/19/20 06:54) Hives Medications to take at Discharge Vits [Prenatabs FA ] 1 tab PO DAILY 12/30/19 Ibuprofen [Motrin] 800 mg PO TID PRN PRN #60 tab 01/21/20 Oxycodone [Oxyir] 5 mg PO Q6H PRN PRN 7 Days #28 tablet 01/21/20 Vits [Prenatabs FA ] 1 tablet PO DAILY@1200 tablet 01/21/20 The following prescriptions were given: Ibuprofen [Motrin] 800 mg PO TID PRN PRN #60 tab PRN Reason: Pain Transmission Status: Pending to [facility] Oxycodone [Oxyir] 5 mg PO Q6H PRN PRN 7 Days #28 tablet PRN Reason: severe pain Transmission Status: Sent to [facility] Follow-Up: Call to make an appointment with your doctor for an incision check in 1-2 weeks. You will also need a 6 week post- follow up appointment. Test results from this visit will be discussed in further detail at your follow- up appointment, if applicable. Please Follow Up With: Nubia Moctezuma - Call to make an appointment for an incision check in 1-2 [phone] When: You will need a post check in 6 weeks. Primary Care Physician: Care Physician,No Primary [Primary Care Provider] -
--- NOTE | 2020-01-21 07:33 | PCM.DC.SUM ---
Discharge Date and Diagnosis Date of Admission: 01/19/20 Hospital Course and Treatment Operations: - - repeat LTCS Procedures: None Summary of Care Provided: The patient is a 35 year old female who was admitted for repeat section. This was performed without difficulty. She had acute blood loss anemia superimposed on chronic antepartum anemia that she tolerated well. By postoperative day #2 she was ambulating, urinating tolerating regular diet without discharge. She was discharged home with routine instructions and to follow-up in the office in 1-2 in 6 weeks or as needed. If baby is not discharged today, patient will stay until tomorrow. Anticipate discharge today otherwise. [] - Physical Exam Vitals/I&O's: Vital Signs Temp Pulse Resp BP Pulse Ox 98.7 F 74 14 106/47 L 96 01/21/20 01:41 01/21/20 01:41 01/21/20 01:41 01/21/20 01:41 01/20/20 14:07 Oxygen Delivery Method Room Air Weight: 139 kg Body Mass Index (BMI) 49.4 Intake and Output for Last 24 Hours 01/19/20 01/20/20 01/21/20 23:59 23:59 23:59 Intake Total 4917.50 / 4917.50 1393.33 / 1393.33 Output Total 1150 / 1150 1700 / 1700 Balance 3767.50 / 3767.50 -306.67 / -306.67 Current Medications Acetaminophen (Tylenol) 1,000 mg PO Q8H PRN PRN Reason: Pain Score 1-3/10 Last Admin: 01/20/20 00:19 Dose: 1,000 mg Documented by: Benzonatate (Tessalon Perle) 100 mg PO TID PRN PRN PRN Reason: COUGH Last Admin: 01/20/20 22:38 Dose: 100 mg Documented by: Bisacodyl (Dulcolax) 10 mg RECTAL UD PRN PRN Reason: If no BM Enoxaparin Sodium (Lovenox) 40 mg SC DAILY@0600 [facility] Last Admin: 01/21/20 05:39 Dose: 40 mg Documented by: Hydrocortisone (Hytone) 1 applic TOPICAL TID PRN PRN; Protocol PRN Reason: Discomfort Naloxone HCl 4 mg/ Dextrose 504 mls @ 0 mls/hr IV .Q0M PRN; Protocol PRN Reason: Respiratory depression Ibuprofen (Motrin) 600 mg PO Q6H PRN PRN PRN Reason: Pain Score 1-3/10 Ketorolac Tromethamine (Toradol (Bkc)) 30 mg IV Q6H TAN[facility] Stop: 01/21/20 08:01 Last Admin: 01/21/20 01:37 Dose: 30 mg Documented by: Methylergonovine Maleate (Methergine) 0.2 mg IM X1 PRN PRN Reason: Uterine Atony Naloxone HCl (Narcan) 0.02 mg IV Q1M PRN PRN Reason: RR <10 and pt unresponsive Ondansetron HCl (Zofran) 4 mg IV Q4H PRN PRN PRN Reason: Nausea Oxycodone HCl (Oxyir) 5 - 10 mg PO Q4H PRN PRN PRN Reason: Pain Score 4-10/10 Last Admin: 01/21/20 04:11 Dose: 5 mg Documented by: Multivit/Folic Acid/Iron (Prenatabs Fa) 1 tablet PO DAILY@1200 [facility] Last Admin: 01/20/20 10:26 Dose: 1 tablet Documented by: Prochlorperazine Edisylate (Compazine Iv) 10 mg IV Q6H PRN PRN PRN Reason: NAUSEA Senna/Docusate Sodium (Senokot-S, Irlanda-Colace) 0 tablet PO DAILY PRN PRN Reason: Constipation Last Admin: 01/20/20 10:26 Dose: 2 tablet Documented by: Simethicone (Mylicon) 80 mg PO PCHS PRN PRN Reason: Indigestion/stomach pain Last Admin: 01/20/20 22:56 Dose: 80 mg Documented by: Sodium Chloride () 5 - 15 ml IV UD PRN PRN Reason: SALINE FLUSH Last Admin: 01/21/20 01:37 Dose: 10 ml Documented by: Discharge Diet: No Restrictions Discharge Activity: Return to Normal Activity, May Not Drive - for 2 weeks, May not drive while taking narcotic pain medications., May Shower, May Take a Tub Bath - in 7 days. May resume sexual activity in: 4-6 weeks Additional Activity Instructions:: Nothing in the vagina for 4-6 weeks. You may return to work/school in 6 weeks. Call your doctor if your incision/area has: Continuous Slow Oozing, Sudden Increased Bleeding, Increased Pain/ Swelling, Increased Redness, Foul Smelling Discharge Call your doctor if you observe: Fever of 101 or Higher, Using more than one pad per hour - for 2 hours Suture Line Care: Avoid Pulling/Pushing, Avoid Pinching/Bending Cleanse incision/area with: Keep Dressing Clean & Dry Home Medications: Medications to take at Discharge Vits [Prenatabs FA ] 1 tab PO DAILY 12/30/19 Ibuprofen [Motrin] 800 mg PO TID PRN PRN #60 tab 01/21/20 Oxycodone [Oxyir] 5 mg PO Q6H PRN PRN 7 Days #28 tablet 01/21/20 Vits [Prenatabs FA ] 1 tablet PO DAILY@1200 tablet 01/21/20 Following Prescrptions Were Given to Patient: Ibuprofen [Motrin] 800 mg PO TID PRN PRN #60 tab PRN Reason: Pain Transmission Status: Pending to [facility] Oxycodone [Oxyir] 5 mg PO Q6H PRN PRN 7 Days #28 tablet PRN Reason: severe pain Transmission Status: Sent to [facility] Primary Care Physician: Care Physician,No Primary [Primary Care Provider] - Please Follow Up With: Nubia Moctezuma - Call to make an appointment for an incision check in 1-2 [phone] When: You will need a post check in 6 weeks. Medical Necessity - Tobacco Use Smoking Status: Current every day smoker Meaningful Use Info Meaningful Use Diagnoses (Choose all that apply): None applicable
[2020-01-21 08:22] VITALS: BP 102/57; PULSE 76; RESP 16; TEMP 36.7
[2020-01-21 14:31] VITALS: BP 131/66; PULSE 85; RESP 12; TEMP 36.6
[2020-01-21 14:57] LABS: Pathology Specimen OB SEE PATHOLOGY REPORT
[2020-01-21] MEDS: Benzonatate 100 MG Capsule PO (18:13)
[2020-01-21 20:30] VITALS: BP 115/90; PULSE 81; RESP 18; TEMP 37
[2020-01-21] MEDS: Ibuprofen 600 MG Tablet PO (22:14)
[2020-01-22 01:03] VITALS: BP 114/53; PULSE 73; RESP 18; TEMP 36.3
[2020-01-22] MEDS: Acetaminophen 500 MG Tablet 1000 MG PO (01:12)
[2020-01-22] MEDS: Ibuprofen 600 MG Tablet PO (05:45)
[2020-01-22] MEDS: Enoxaparin 40 MG/0.4 ML Syringe SC (05:45)
[2020-01-22 08:02] VITALS: BP 108/40; PULSE 70; RESP 15; TEMP 36.6
--- NOTE | 2020-01-22 08:26 | PCM.PN.OB ---
Subjective: Patient seen at bedside. Doing well, reports good pain control. Stated ready to go home AMPARO. going well. Voiding without difficulty. Up and ambulating unit. Already has follow up appointment scheduled. - Physical Exam Vitals/I&O's: Vital Signs Temp Pulse Resp BP Pulse Ox 97.9 F 70 15 108/40 L 96 01/22/20 08:02 01/22/20 08:02 01/22/20 08:02 01/22/20 08:02 01/20/20 14:07 Oxygen Delivery Method Room Air Weight: 306 lb 7.08 oz Body Mass Index (BMI) 49.4 Intake and Output for Last 24 Hours 01/20/20 01/21/20 01/22/20 23:59 23:59 23:59 Intake Total 1393.33 / 1393.33 Output Total 1700 / 1700 Balance -306.67 / -306.67 General: Alert, Oriented x3, Cooperative Lungs: Clear to auscultation, Normal air movement Cardiovascular: Regular rate, Regular Rhythm Abdomen: Bowel Sounds Present, Soft, Obese, - - Passing flatus Neurological: Cranial nerves II-XII grossly intact Psych/Mental Status: Normal Affect, Appropriate Current Medications Acetaminophen (Tylenol) 1,000 mg PO Q8H PRN PRN Reason: Pain Score 1-3 Last Admin: 01/22/20 01:12 Dose: 1,000 mg Documented by: Benzonatate (Tessalon Perle) 100 mg PO TID PRN PRN PRN Reason: COUGH Last Admin: 01/21/20 18:13 Dose: 100 mg Documented by: Bisacodyl (Dulcolax) 10 mg RECTAL UD PRN PRN Reason: If no BM Enoxaparin Sodium (Lovenox) 40 mg SC DAILY@0600 [facility] Last Admin: 01/22/20 05:45 Dose: 40 mg Documented by: Hydrocortisone (Hytone) 1 applic TOPICAL TID PRN PRN; Protocol PRN Reason: Discomfort Naloxone HCl 4 mg/ Dextrose 504 mls @ 0 mls/hr IV .Q0M PRN; Protocol PRN Reason: Respiratory depression Ibuprofen (Motrin) 600 mg PO Q6H PRN PRN PRN Reason: Pain Score 1-3/10 Last Admin: 01/22/20 05:45 Dose: 600 mg Documented by: Methylergonovine Maleate (Methergine) 0.2 mg IM X1 PRN PRN Reason: Uterine Atony Naloxone HCl (Narcan) 0.02 mg IV Q1M PRN PRN Reason: RR <10 and pt unresponsive Ondansetron HCl (Zofran) 4 mg IV Q4H PRN PRN PRN Reason: Nausea Oxycodone HCl (Oxyir) 5 - 10 mg PO Q4H PRN PRN PRN Reason: Pain Score 4-10/10 Last Admin: 01/21/20 20:41 Dose: 10 mg Documented by: Multivit/Folic Acid/Iron (Prenatabs Fa) 1 tablet PO DAILY@1200 [facility] Last Admin: 01/21/20 14:33 Dose: Not Given Documented by: Prochlorperazine Edisylate (Compazine Iv) 10 mg IV Q6H PRN PRN PRN Reason: NAUSEA Senna/Docusate Sodium (Senokot-S, Irlanda-Colace) 0 tablet PO DAILY PRN PRN Reason: Constipation Last Admin: 01/20/20 10:26 Dose: 2 tablet Documented by: Simethicone (Mylicon) 80 mg PO PCHS PRN PRN Reason: Indigestion/stomach pain Last Admin: 01/20/20 22:56 Dose: 80 mg Documented by: Sodium Chloride () 5 - 15 ml IV UD PRN PRN Reason: SALINE FLUSH Last Admin: 01/21/20 08:17 Dose: 10 ml Documented by: Medical Necessity - Tobacco Use Smoking Status: Current every day smoker Assessment/Plan Patient to be discharged home today. Follow up in office in 2 weeks.
== END 2020-01-22 09:20 | disposition home or self-care (01) | DRG 539 ==
PROVIDERS: Admitting Provider Obstetrics & Gynecology; Referring Provider Obstetrics & Gynecology; Visit Provider Obstetrics & Gynecology
PROC: 10D00Z1 Extraction of Products of Conception, Low, Open Approach (ICD-10-PCS; CPT 59514; principal; 2020-01-19 07:30)
DX: O24.429 Gestational diabetes mellitus in childbirth, unspecified control (principal); O99.02 Anemia complicating childbirth; D64.9 Anemia, unspecified; O99.334 Smoking (tobacco) complicating childbirth; F17.200 Nicotine dependence, unspecified, uncomplicated; Z3A.37 37 weeks gestation of pregnancy; Z37.0 Single live birth
CPT/HCPCS: 80307; 82962; 85025; 85027; 86850; 86900; 86901; 88302; 99218; 99251; J7120; A4216; G0378; G0463; J2405

== ENCOUNTER 2021-03-20 09:54 | Emergency (ER) | payer MEDICAID, SELFPAY ==
[2020-01-19 05:30] VITALS: BMI 49.4
[2021-03-20 09:55] VITALS: BP 148/86; PULSE 81; RESP 16; TEMP 36.3; O2SAT 97; BMI 51.0
--- NOTE | 2021-03-20 10:34 | CT_ITS ---
STUDY: CT BRAIN WITHOUT CONTRAST REASON FOR EXAM: Female, 36 years old. Severe headache RADIATION DOSAGE (If Supplied By Facility): CTDIvol = ( 38.43 ) mGy, DLP = ( 683.87 ) mGycm TECHNIQUE: Transaxial CT imaging of the brain was performed without administration of intravenous contrast material. Individualized dose optimization techniques were used for this CT. COMPARISON: No relevant priors. FINDINGS: Normal soft tissue structures. Normal calvarium. Normal size ventricles and extra-axial spaces for the patient''s age. Normal white matter tracts of the cerebral hemispheres. Normal basal ganglia and thalami. Normal brainstem. Normal cerebellum. There is no intracranial hemorrhage. There are no findings of an acute ischemic infarction. Normal visualized paranasal sinuses. CT/Brain/Head without Contrast IMPRESSION: Normal unenhanced CT scan of the brain. Electronically Signed: Cesar Campbell MD at 11:54 EDT , Service support ,
--- NOTE | 2021-03-20 10:35 | EX.ED.VIS.HA ---
HPI History of Present Illness Chief Complaint: Headache Narrative Narrative: 36-year-old female presenting with headache which has been ongoing for 2 days. She states that it waxes and wanes in severity. It was not acute in onset. She is not had any fever or neck pain. She does state that sometimes she has light sensitivity and pain across her scalp with certain head movements. Patient also states that she sometimes has blurry vision with these episodes. She denies any trauma. [facility] Medical History delivery delivered Gestational diabetes History of bronchitis Allergy/AdvReac Type Severity Reaction Status Date / Time Penicillins Allergy Hives Verified 03/20/21 09:54 Surgical History History of cervical cerclage Social History Smoking Status: Current every day smoker ROS ROS ED Constitutional Constitutional ED: Denies chills, fever(s) or sweats Eyes Eyes: Reports blurry vision; Denies change in vision ENT ENT ED: Denies ear pain, rhinorrhea or sore throat Cardiovascular Cardiovascular: Denies chest pain, palpitations or racing heartbeat Respiratory/Chest Respiratory/Chest: Denies cough, dyspnea or sputum Gastrointestinal Gastrointestinal: Denies abdominal pain, constipation, diarrhea or vomiting Genitourinary Genitourinary ED: Denies dysuria, hematuria or urinary frequency Musculoskeletal Musculoskeletal: Denies arthralgias, myalgias or neck pain Integumentary Denies abscess, Abrasions or rash Neurologic Neurologic: Reports headache(s) and other Details: Photophobia ; Denies paresthesias or weakness Psychiatric Psychiatric: Denies anxiety, depression, suicidal ideation or suicidal thoughts Endocrine Endocrinology: Denies polydipsia or polyuria EXAM Physical Exam Const Vital Signs: 03/20/21 09:55 Temperature 97.3 F L Temperature Source Temporal Pulse Rate 81 Respiratory Rate 16 Blood Pressure 148/86 H Blood Pressure Mean 106 Pulse Ox 97 Oxygen Delivery Method Room Air General Appearance ED: Negative for pallor HEENT Reports normocephalic, head/scalp atraumatic and moist mucous membranes Eyes PERRL and EOMs intact bilaterally Neck no lymphadenopathy and supple Chest Wall inspection of chest normal and palpation of chest normal Resp normal respiratory effort and clear to auscultation bilaterally Auscultation: Negative for rales, rhonchi or wheezes Cardio regular rate and regular rhythm GI normal to inspection, nondistended, normoactive bowel sounds and non-distended Auscultation: normoactive bowel sounds Palpation: soft Narrative: Deferred Back/Spine no CVA tenderness General Back: Negative for CVA tenderness Cervical Spine: Negative for cervical spine tenderness Extremity normal to inspection General Extremety ED: Yes edema and tenderness General Extremity: edema Neuro oriented x3 and CN's II-XII intact bilaterally Neuro Narrative: No focal neurologic deficits or lateralizing signs or symptoms. Sensorium / Orientation: alert Motor Exam: strength 5/5 throughout Psych mental status grossly normal Attitude: No agitated Skin no rashes or lesions noted and no wounds General Skin Exam: Negative for jaundice or pallor MDM MDM MDM Narrative Medical decision making narrative: Patient presenting with headache without history of migraine. Patient was given Reglan and Benadryl IV and on reevaluation her headache had improved. She had CT brain which showed no acute intracranial abnormality. Patient counseled she will need to follow-up with her primary care physician. She can return precautions. Impression: 1 headache Radiography Diagnostic Testing: Radiology Impression Brain CT 03/20/21 10:34 IMPRESSION: Normal unenhanced CT scan of the brain. Electronically Signed: Cesar Campbell MD at 11:54 EDT , Service support , Discharge Plan Triage Chief Complaint: Headache ED Provider: Jerrod Watson Dx/Rx/DC Orders Instructions: ED Headache Unspecified Primary Care Provider: Care Physician,No Primary Referrals: Care Physician,No Primary [Primary Care Provider] - Disposition Disposition: Home, self care
[2021-03-20] MEDS: DiphenhydrAMINE 50 MG/ML Syringe 25 MG IV (11:29)
[2021-03-20] MEDS: Metoclopramide 10 MG/2 ML Vial IV (11:31)
[2021-03-20 13:14] VITALS: BP 129/82; PULSE 82; RESP 14; O2SAT 98
== END 2021-03-20 13:17 | disposition home or self-care (01) ==
PROVIDERS: Emergency Provider Student in an Organized Health Care Education/Training Program
DX: R51.9 Headache, unspecified (principal); F17.200 Nicotine dependence, unspecified, uncomplicated
CPT/HCPCS: 70450; 96374; 96375; 99283; A4216

== ENCOUNTER → 2021-09-25 | Outpatient (CLI) | payer MEDICAID, SELFPAY | END | disposition home or self-care (01) | LOC: LABSPEC 16:51 | PROVIDERS: Visit Provider Physician Assistant | DX: U07.1 COVID-19 (principal) | CPT/HCPCS: 87635; U0005; U0003 ==

== ENCOUNTER 2022-03-04 18:41 | Emergency (ER) | payer MEDICAID, SELFPAY ==
[2022-03-04 18:42] VITALS: BP 147/95; PULSE 90; RESP 17; TEMP 36.4; O2SAT 100; BMI 46.1
--- NOTE | 2022-03-04 18:56 | US_ITS ---
STUDY: ULTRASOUND TRANSVAGINAL CLINICAL: Female, 37 years old. Pelvic pain. prior tubal ligation TECHNIQUE: Transvaginal COMPARISON: None. FINDINGS: Normal uterine size measuring 7.7 x 5.7 x 4.9 cm in maximal craniocaudal dimension. There are no myometrial masses. Normal endometrial thickness measuring 5.5 mm. There are no endometrial masses, and there is no fluid in the endometrial cavity. Normal uterine cervix. Normal right ovary, measuring 4.4 x 2.4 x 2.5 cm. There are multiple follicles without a dominant cyst. Normal left ovary, measuring 3.6 x 3.1 x 1.9 cm. There are multiple follicles without a dominant cyst. There is no free fluid in the pelvis. US/Transvaginal Non- IMPRESSION: No acute pelvic pathology. Electronically Signed: Josh Parada DO at 20:57 EDT ,
--- NOTE | 2022-03-04 19:05 | EDS_ITS ---
HPI HPI - GI History of Present Illness Chief Complaint: Abd Pain Detail of Chief Complaint: Pelvic pain Informant: patient Abdominal Pain/Flank Pain Onset: Days Context: Gradual Onset Timing: Continuous and Waxes and wanes Current Severity: Mild Maximum Severity: Mild Worsened by: Nothing Relieved by: Remaining Still Nausea/Vomiting/Emesis GI Symptom: Negative for Nausea and Vomiting Diarrhea/Melena/Hematochezia GI Symptom: Negative for Diarrhea, Melena and Hematochezia Associated Symptoms Associated Symptoms: Negative for Dysuria, Frequency and Hematuria LMP: 2 weeks ago. Narrative Narrative: 37-year-old female history of polycystic ovarian syndrome and prior tubal ligation and . Patient states that she has had pelvic pain and bilateral lower quadrant flank pain for the last several days. Her last menstrual period was 1 to 2 weeks ago. She has had some mild vaginal bleeding. No discharge. No dysuria. No fever. Prior similar symptoms: No Recent Illness/Hospitalization: No PFSH PFSH Medical History delivery delivered Gestational diabetes History of bronchitis Home Medications albuterol sulfate 90 mcg/actuation aerosol inhaler 1 inh INHALATION Q6H PRN #6.7 g 09/25/21 [Rx Last Taken Unknown] azithromycin 250 mg tablet See Rx Instructions PO .COMPLEX #6 tab 09/25/21 [Rx Last Taken Unknown] Allergy/AdvReac Type Severity Reaction Status Date / Time Penicillins Allergy Hives Verified 03/04/22 18:42 Surgical History History of cervical cerclage Social History Smoking Status: Current every day smoker tobacco type: cigarettes ROS ROS ED ROS Narrative Pelvic pain and flank pain. Review of Systems ROS Unobtainable: Denies due to encephalopathy Constitutional Constitutional ED: Denies fever(s) ENT ENT ED: Denies ear pain Cardiovascular Cardiovascular: Denies chest pain Respiratory/Chest Respiratory/Chest: Denies cough, dyspnea or sputum Gastrointestinal Gastrointestinal: Reports abdominal pain; Denies diarrhea, nausea or vomiting Genitourinary Genitourinary ED: Denies dysuria or hematuria Musculoskeletal Musculoskeletal: Denies arthralgias or myalgias Integumentary Denies rash Neurologic Neurologic: Denies headache(s) Psychiatric Psychiatric: Denies depression Endocrine Endocrinology: Denies polyuria Hematologic/Lymphatic Hematologic/Lymphatic: Denies easy bruising Allergic/Immunologic Allergic/Immunologic ED: Denies urticaria EXAM Physical Exam Narrative Exam Narrative: 37-year-old female no acute distress. Vital signs stable afebrile. H EENT exam unremarkable. Lungs clear. Heart regular rhythm. Abdomen soft nondistended normal bowel sounds no peritoneal signs. Suprapubic tenderness. Back nontender. No CVA tenderness. Moving all 4 extremities. Const Vital Signs: 03/04/22 18:42 03/04/22 20:30 Temperature 97.6 F L Temperature Source Temporal Pulse Rate 90 66 Respiratory Rate 17 66 H Blood Pressure 147/95 H 128/76 H Blood Pressure Mean 112 93 Pulse Ox 100 100 Oxygen Delivery Method Room Air Room Air Positive well nourished, well developed and obese; Negative for cachectic, contractures or unkempt General Appearance ED: well developed and NAD; Negative for unkempt, cachectic, contractures or pallor Nutritional Appearance: obese; Negative for cachectic HEENT Reports moist mucous membranes; Denies TM's clear normocephalic and atraumatic; Negative for trauma or tenderness Tympanic Membrane ED: Negative for TM's clear Eyes PERRL and EOMs intact bilaterally General Eye ED: Negative for pale conjunctiva or scleral icterus Neck no lymphadenopathy, supple and no JVD General: Negative for tenderness Resp normal respiratory effort and clear to auscultation bilaterally Auscultation: Negative for rales, rhonchi or wheezes Cardio regular rate, regular rhythm, S1 normal heart sound, S2 normal heart sound and no murmurs GI non-distended and no masses; Negative for non-tender Inspection: Negative for abdominal distention Auscultation: normoactive bowel sounds Palpation: soft and tender; Negative for guarding, rigid or rebound tenderness present Back/Spine no CVA tenderness General Back: Negative for CVA tenderness Cervical Spine: Negative for cervical spine tenderness Thoracic Spine / Upper Back: Negative for thoracic spinal tenderness Extremity full ROM General Extremety ED: Negative for edema or tenderness General Extremity: Negative for edema Neuro moves all extremities Sensorium / Orientation: alert, oriented to person, oriented to place and oriented to time; Negative for confused, lethargic or stuporous Motor Exam: strength 5/5 throughout Psych mental status grossly normal and thought process normal Appearance: Negative for unkempt Attitude: No agitated Mood & Affect: Negative for depressed, anxious or tearful Skin no wounds General Skin Exam: Negative for jaundice or pallor Lesions: no lesions Rashes: no rashes MDM MDM MDM Narrative Medical decision making narrative: 37-year-old female no acute distress. Complaining of suprapubic pelvic and abdominal pain. Exam benign. Ultrasound and labs pending. Repeat exam patient is doing well at 9:49 PM. We went over test results. She will be discharged home with outpatient follow-up with her finish inspector. Lab Data Attestation: I reviewed the patient's lab results. Lab results narrative: CBC shows a white count 9.5. H&H 11.5 and 37. Electrolytes show a gap of 6 normal BUN and creatinine. Serum test negative. Urinalysis negative. Ultrasound read as negative. Labs: Laboratory Results - last 24 hr 03/04/22 03/04/22 03/04/22 19:04 19:04 19:04 WBC 9.5 RBC 4.93 Hgb 11.5 L Hct 37.3 MCV 75.7 L MCH 23.3 L MCHC 30.8 L RDW Std Deviation 43.5 RDW Coeff of Ankit 15.9 H Plt Count TNP MPV 11.9 Immature Gran % (Auto) 0.400 Neut % (Auto) 72.1 H Lymph % (Auto) 19.8 Sebastian % (Auto) 4.6 Eos % (Auto) 2.5 Baso % (Auto) 0.6 Absolute Neuts (auto) 6.8 Absolute Lymphs (auto) 1.87 Nucleated RBC % 0 Platelet Estimate ADEQUATE Sodium 139 Potassium 3.9 Chloride 110 H Carbon Dioxide 23.0 Anion Gap 6 BUN 9 Creatinine 0.95 Estim Creat Clear Calc 77.38 Est GFR (MDRD) Af Amer 86 Est GFR (MDRD) Non-Af 71 BUN/Creatinine Ratio 9.5 L Glucose 114 H Calcium 9.0 Serum , Qual NEGATIVE Urine Color Urine Clarity Urine pH Ur Specific [place] Urine Protein Urine Glucose (UA) Urine Ketones Urine Occult Blood Urine Nitrite Urine Bilirubin Urine Urobilinogen Ur Leukocyte Esterase Urine RBC Urine WBC Ur Squamous Epith Cells Urine Bacteria Urine Mucus 03/04/22 19:04 WBC RBC Hgb Hct MCV MCH MCHC RDW Std Deviation RDW Coeff of Ankit Plt Count MPV Immature Gran % (Auto) Neut % (Auto) Lymph % (Auto) Sebastian % (Auto) Eos % (Auto) Baso % (Auto) Absolute Neuts (auto) Absolute Lymphs (auto) Nucleated RBC % Platelet Estimate Sodium Potassium Chloride Carbon Dioxide Anion Gap BUN Creatinine Estim Creat Clear Calc Est GFR (MDRD) Af Amer Est GFR (MDRD) Non-Af BUN/Creatinine Ratio Glucose Calcium Serum , Qual Urine Color Yellow Urine Clarity Clear Urine pH 6.0 Ur Specific [place] 1.010 Urine Protein Negative Urine Glucose (UA) Normal Urine Ketones Negative Urine Occult Blood Negative Urine Nitrite Negative Urine Bilirubin Negative Urine Urobilinogen Normal Ur Leukocyte Esterase Negative Urine RBC 0 SEEN Urine WBC 0 SEEN Ur Squamous Epith Cells 0-5 SEEN Urine Bacteria 0 SEEN Urine Mucus 0 SEEN Radiography Diagnostic Testing: Clinical Impression(s) from Imaging Studies Transvaginal US 03/04/22 18:56 IMPRESSION: No acute pelvic pathology. Electronically Signed: Josh Parada DO at 20:57 EDT Reading Location ID and State: [facility] / [place] Tel [phone], Service support , Discharge Plan Triage Chief Complaint: Abd Pain ED Provider: Luis Armando Dunlap Dx/Rx/DC Orders Clinical Impression: Pelvic pain, History of polycystic ovarian syndrome Instructions: ED Pelvic Pain, Unknown Cause Prescriptions: No Action azithromycin [Zithromax Z-Saurabh] 250 mg tablet See Rx Instructions PO .COMPLEX Qty: 6 RF: 0 albuterol sulfate [ProAir HFA] 90 mcg/actuation HFA aerosol inhaler 1 inh inhalation Q6H PRN (Reason: shortness of breath or wheezing) Qty: 6.7 RF: 0 Primary Care Provider: Care Physician,No Primary Referrals: Jose Elias Forte MD [STAFF PHYSICIAN] - As soon as possible Alma Cesar MD [STAFF PHYSICIAN] - As soon as possible Care Physician,No Primary [Primary Care Provider] - Activity Restrictions/Additional Instructions: Motrin for pain. Follow-up with either your finish inspector from the [facility] or Dr. Jose Elias Forte is on-call tonight for [employer]. Your labs and ultrasound were all negative tonight. Disposition Disposition: Home, Self Care
[2022-03-04] MEDS: Ondansetron 4 MG/2 ML Vial IV (19:07)
[2022-03-04] MEDS: morphine 8 MG/ML Syringe IV (19:08)
[2022-03-04 19:16] LABS: Bacteria 0 SEEN /hpf (None Seen); Mucous, Urine 0 SEEN /hpf (<or=2+); Red Blood Cells-Urine 0 SEEN /hpf (0-5); White Blood Cells 0 SEEN /hpf (0-5)
[2022-03-04 19:18] LABS: Color, Urine Yellow (Yellow); Glucose, Dipstick Normal (Normal); Ketone-Dipstick Negative (Negative); Leukocyte Esterase-Dipstick Negative /ul (Negative); Nitrite-Dipstick Negative (Negative); Occult Blood-Urine Negative /ul (Negative); Protein-Dipstick Negative (Negative); Urine Bilirubin Dipstick Negative (Negative); Urine Clarity Clear (Clear); Urine Urobilinogen Normal (Normal)
[2022-03-04 19:24] LABS: Squamous Epithelial Cells - UA 0-5 SEEN /hpf (5-10)
[2022-03-04 19:25] LABS: Internal QC Validated? YES +Cl - CLEAR BKGD; Pregnancy, Serum, hCG Quali. NEGATIVE Negative
[2022-03-04 19:27] LABS: Absolute Lymphocyte Count 1.87 X10^3/uL (0.83-4.51); Absolute Neutrophil Count 6.8 X10^3/uL (2.0-7.7); Basophil# 0.06 X10^3/uL; Basophil% 0.6 % (0-1); Eosinophil# 0.24 X10^3/uL; Eosinophils% 2.5 % (0-5); Hematocrit 37.3 % (37-47); Hemoglobin 11.5 g/dL (12.0-15.0); Lymphocyte # 1.87 X10^3/ul (0.83-4.51); Lymphocyte % 19.8 % (19-41); Mean Corp Hgb Conc 30.8 g/dL (32-36); Mean Corpuscular Hgb 23.3 pg (27.0-32.0); Mean Corpuscular Volume 75.7 fL (81-99); Mean Platelet Vol. 11.9 fl (6.2-12.0); Monocyte# 0.43 X10^3/uL; Monocyte% 4.6 % (0-10); NRBC Flagged by Analyzer 0 % (0-5); Neutrophil # 6.81 X10^3/uL (2.7-7.7); Neutrophil % 72.1 % (47-70); POSITIVE COUNT YES; RBC Distribution Width CV 15.9 % (11.6-14.6); RBC Distribution Width SD 43.5 fl (35.1-43.9); Red Blood Count 4.93 M/mm3 (4.2-5.4); White Blood Count 9.5 K/mm3 (4.4-11.0)
[2022-03-04 19:31] LABS: Anion Gap 6 (5-15); BUN 9 mg/dL (7-18); BUN/Creat Ratio 9.5 RATIO (10-20); Chloride 110 mmol/L (98-107); Creatinine, Serum 0.95 mg/dL (0.55-1.02); EST Glomerular Filtration Rate 71 mL/min (>60); Est Glom Filt Rate - Afr Amer 86 mL/min (>60); Estimated Creatinine Clearance 77.38 ml/min; Glucose 114 mg/dL (74-106); Potassium 3.9 mmol/L (3.5-5.1); Sodium Level 139 mmol/L (136-145)
[2022-03-04 19:37] LABS: Differential Indicated SCAN CRITERIA MET
[2022-03-04 19:38] LABS: Platelet Estimate ADEQUATE (ADEQ)
[2022-03-04 20:30] VITALS: BP 128/76; PULSE 66; RESP 66; O2SAT 100
== END 2022-03-04 22:00 | disposition home or self-care (01) ==
PROVIDERS: Emergency Provider Emergency Medicine; Visit Provider Emergency Medicine
DX: R10.2 Pelvic and perineal pain (principal); N93.9 Abnormal uterine and vaginal bleeding, unspecified; F17.210 Nicotine dependence, cigarettes, uncomplicated; R10.9 Unspecified abdominal pain
CPT/HCPCS: 76830; 80048; 81001; 84703; 85025; 93976; 96374; 96375; 99283; A4216; J2405

== ENCOUNTER 2022-12-29 20:22 | Emergency (ER) | payer MEDICAID, SELFPAY ==
[2022-12-29 20:23] VITALS: BP 160/85; PULSE 83; RESP 15; TEMP 36.8; O2SAT 100; BMI 46.9
--- NOTE | 2022-12-29 20:44 | EDS_ITS ---
HPI <KALIE Longoria - Last Filed: 12/29/22 22:07> History of Present Illness Chief Complaint: General Illness Narrative Narrative: Patient is a 37-year-old female with history of low iron who presents to the emergency department with concerns of ongoing exhaustion. Patient states for the last 2 days she has been more tired than she ever has. Patient states that she noticed some lymph nodes in her neck, she has a cough, feels like she is fighting something however she is concerned due to the excessive tiredness. She did see her PCP 1 week ago who did an iron as well as a vitamin D level. She did not have regular laboratory values drawn. Patient does have a cough for the last 2 to 3 days. She does smoke cigarettes. She denies any fever or chills. Denies any chest pain. Denies any significant pain. PFSH <KALIE Longoria - Last Filed: 12/29/22 22:07> [facility] Medical History delivery delivered Gestational diabetes History of bronchitis Home Medications ergocalciferol (vitamin D2) 1,250 mcg (50,000 unit) capsule 1,250 mcg PO QWEEK 12/29/22 [History Last Taken Unknown] ferrous sulfate 325 mg (65 mg iron) tablet (FeroSul) 325 mg PO BID 12/29/22 [History Last Taken Unknown] Allergy/AdvReac Type Severity Reaction Status Date / Time Penicillins Allergy Hives Verified 12/29/22 20:35 Surgical History History of cervical cerclage Social History Smoking Status: Current every day smoker tobacco type: cigarettes ROS <KALIE Longoria - Last Filed: 12/29/22 22:07> ROS ED ROS Narrative Constitutional: Negative for fever, chills, weight loss. Positive for generalized weakness, fatigue Eyes: Negative for vision loss, vision change, double vision ENT: Negative for any sore throat, ear pain, congestion. Positive for large lymph nodes in her neck Cardiovascular: Negative for any chest pain, tightness, palpitations Respiratory: Negative for any cough, sputum production, hemoptysis, dyspnea, dyspnea on exertion, orthopnea Gastrointestinal: Negative for any abdominal pain, nausea, vomiting, diarrhea, constipation, blood in stool, blood in vomit : Negative for any urinary frequency, dysuria, retention, blood in urine Muscle skeletal: Negative for any muscle joint pain, stiffness, myalgias, arthralgias, neck pain, back pain Neurological: Negative for any headache, syncope, numbness or tingling, dizziness Skin: Negative for any rashes, lumps, itching, abrasions, lacerations Psychiatric: Negative for any depression, anxiety, stress, suicidal ideation, homicidal ideation Hematologic: Negative for any easy bruising, excessive bruising, easy bleeding Allergies: Negative for any eczema, hives, rash EXAM <KALIE Longoria - Last Filed: 12/29/22 22:07> Physical Exam Narrative Exam Narrative: Vital signs reviewed. Patient appears generally well. Patient alert and orient x4. HEET: Head normocephalic atraumatic, TMs clear bilaterally. Posterior pharynx is clear, moist mucous membranes. Nares clear bilaterally. Neck: Supple with no tenderness. No signs of meningismus, negative jolt sign. Mild in cervical cervical lymphadenopathy. Cardiac: Regular rate and rhythm no murmurs gallops or rubs, equal peripheral pulses bilaterally. Respiratory: Lungs clear to auscultation bilaterally. No chest tenderness. Abdomen: Soft, nontender, nondistended. No abdominal bruit or pulsatile masses. No hepatosplenomegaly Extremities: No peripheral edema, no signs of gross trauma or deformity. Active full range of motion of all extremities. Neuro: Cranial nerves II through XII intact, no focal neurological deficits. Skin: Clean dry and intact with no rash, purpura, petechiae, vesicles or pustules. Backs/flank: No CVA tenderness, no midline spinal tenderness, no deformity. Psych: Normal mood and affect. No SI, HI or acute psychosis. Const Vital Signs: 12/29/22 20:23 12/29/22 20:31 12/29/22 22:21 Temperature 98.3 F Temperature Source Temporal Pulse Rate 83 77 Respiratory Rate 15 16 Respiratory Effort Normal Non-Labored Respiratory Pattern Normal Blood Pressure 160/85 H 125/75 H Blood Pressure Mean 110 Pulse Ox 100 97 Oxygen Delivery Method Room Air Positive well nourished and well developed General Appearance ED: well developed <Dr. Stephanie Davis MD - Last Filed: 12/29/22 23:32> Physical Exam Const Vital Signs: 12/29/22 20:23 12/29/22 20:31 12/29/22 22:21 Temperature 98.3 F Temperature Source Temporal Pulse Rate 83 77 Respiratory Rate 15 16 Respiratory Effort Normal Non-Labored Respiratory Pattern Normal Blood Pressure 160/85 H 125/75 H Blood Pressure Mean 110 Pulse Ox 100 97 Oxygen Delivery Method Room Air MDM <KALIE Longoria - Last Filed: 12/29/22 22:07> [facility] Lab Data Attestation: I reviewed the patient's lab results. Labs: Laboratory Results - last 24 hr 12/29/22 12/29/22 12/29/22 20:55 21:05 21:05 WBC 10.6 RBC 4.91 Hgb 9.8 L Hct 34.5 L MCV 70.3 L MCH 20.0 L MCHC 28.4 L RDW Std Deviation 46.3 H RDW Coeff of Ankit 18.6 H Plt Count 216 MPV 11.3 Immature Gran % (Auto) 0.500 Neut % (Auto) 66.9 Lymph % (Auto) 23.1 [place] % (Auto) 5.2 Eos % (Auto) 3.6 Baso % (Auto) 0.7 Absolute Neuts (auto) 7.1 Absolute Lymphs (auto) 2.46 Nucleated RBC % 0 Sodium 142 Potassium 3.7 Chloride 110 H Carbon Dioxide 24.0 Anion Gap 8 BUN 9 Creatinine 0.86 Estim Creat Clear Calc 85.47 Est GFR (MDRD) Af Amer 96 Est GFR (MDRD) Non-Af 79 BUN/Creatinine Ratio 10.4 Glucose 166 H Calcium 8.9 TSH 1.89 Urine Color Yellow Urine Clarity Sl. Cloudy Urine pH 5.0 Ur Specific [place] 1.030 Urine Protein 15 H Urine Glucose (UA) Normal Urine Ketones 5 H Urine Occult Blood 25 H Urine Nitrite Negative Urine Bilirubin Negative Urine Urobilinogen Normal Ur Leukocyte Esterase 100 H Urine RBC 0-5 SEEN Urine WBC 10-25 SEEN Ur Squamous Epith Cells 5-10 SEEN Urine Bacteria 2+ Urine Mucus 0 SEEN Monoscreen 12/29/22 21:05 WBC RBC Hgb Hct MCV MCH MCHC RDW Std Deviation RDW Coeff of Ankit Plt Count MPV Immature Gran % (Auto) Neut % (Auto) Lymph % (Auto) [place] % (Auto) Eos % (Auto) Baso % (Auto) Absolute Neuts (auto) Absolute Lymphs (auto) Nucleated RBC % Sodium Potassium Chloride Carbon Dioxide Anion Gap BUN Creatinine Estim Creat Clear Calc Est GFR (MDRD) Af Amer Est GFR (MDRD) Non-Af BUN/Creatinine Ratio Glucose Calcium TSH Urine Color Urine Clarity Urine pH Ur Specific [place] Urine Protein Urine Glucose (UA) Urine Ketones Urine Occult Blood Urine Nitrite Urine Bilirubin Urine Urobilinogen Ur Leukocyte Esterase Urine RBC Urine WBC Ur Squamous Epith Cells Urine Bacteria Urine Mucus Monoscreen Negative Radiography Diagnostic Testing: Clinical Impression(s) from Imaging Studies Chest X-Ray 12/29/22 20:58 IMPRESSION: No radiographic evidence of acute cardiopulmonary disease. Electronically Signed: Mayo Reyna MD at 21:16 EST , Treatment and Re-Evaluation Narrative: All radiologic examinations were read, reviewed by the emergency department attending. From these reads, a plan of care will be put in place. Patient appears generally well, patient is in no distress. Vital signs are stable. She presents the emergency department for 2 days of generalized fatigue, exhaustion. She denies any specific pain, chest pain shortness of breath. She does have a slight cough.Patient did have a full work-up, patient's CBC showed slight anemia with a hemoglobin of 9.8. On March 2022, hemoglobin was 11.5. The patient is noted to have anemia, she does get her iron checked from her PCP. She will consult with him regarding this, she will need further work- up. There is no evidence of any blood in stool or vomit. Patient's chemistries are slight hyperglycemia the glucose of 166. Patient's TSH was unremarkable, monoscreen was negative. Patient did receive a chest x-ray which was grossly unremarkable. Patient's urinalysis showed some bacteria, no nitrites however some white blood cells and leukocytes, patient has no urinary symptoms. This was sent for culture. At this time, is no evidence to suspect any mono, influenza, COVID-19, pneumonia. Patient will follow-up with her PCP regarding her anemia. She is happy the plan of care, her partner was in the room, he was also given information as well as discharge instructions. Patient was given return precautions. Patient stable for discharge <Dr. Stephanie Davis MD - Last Filed: 12/29/22 23:32> [facility] Lab Data Labs: Laboratory Results - last 24 hr 12/29/22 12/29/22 12/29/22 20:55 21:05 21:05 WBC 10.6 RBC 4.91 Hgb 9.8 L Hct 34.5 L MCV 70.3 L MCH 20.0 L MCHC 28.4 L RDW Std Deviation 46.3 H RDW Coeff of Ankit 18.6 H Plt Count 216 MPV 11.3 Immature Gran % (Auto) 0.500 Neut % (Auto) 66.9 Lymph % (Auto) 23.1 [place] % (Auto) 5.2 Eos % (Auto) 3.6 Baso % (Auto) 0.7 Absolute Neuts (auto) 7.1 Absolute Lymphs (auto) 2.46 Nucleated RBC % 0 Sodium 142 Potassium 3.7 Chloride 110 H Carbon Dioxide 24.0 Anion Gap 8 BUN 9 Creatinine 0.86 Estim Creat Clear Calc 85.47 Est GFR (MDRD) Af Amer 96 Est GFR (MDRD) Non-Af 79 BUN/Creatinine Ratio 10.4 Glucose 166 H Calcium 8.9 TSH 1.89 Urine Color Yellow Urine Clarity Sl. Cloudy Urine pH 5.0 Ur Specific [place] 1.030 Urine Protein 15 H Urine Glucose (UA) Normal Urine Ketones 5 H Urine Occult Blood 25 H Urine Nitrite Negative Urine Bilirubin Negative Urine Urobilinogen Normal Ur Leukocyte Esterase 100 H Urine RBC 0-5 SEEN Urine WBC 10-25 SEEN Ur Squamous Epith Cells 5-10 SEEN Urine Bacteria 2+ Urine Mucus 0 SEEN Monoscreen 12/29/22 21:05 WBC RBC Hgb Hct MCV MCH MCHC RDW Std Deviation RDW Coeff of Ankit Plt Count MPV Immature Gran % (Auto) Neut % (Auto) Lymph % (Auto) [place] % (Auto) Eos % (Auto) Baso % (Auto) Absolute Neuts (auto) Absolute Lymphs (auto) Nucleated RBC % Sodium Potassium Chloride Carbon Dioxide Anion Gap BUN Creatinine Estim Creat Clear Calc Est GFR (MDRD) Af Amer Est GFR (MDRD) Non-Af BUN/Creatinine Ratio Glucose Calcium TSH Urine Color Urine Clarity Urine pH Ur Specific [place] Urine Protein Urine Glucose (UA) Urine Ketones Urine Occult Blood Urine Nitrite Urine Bilirubin Urine Urobilinogen Ur Leukocyte Esterase Urine RBC Urine WBC Ur Squamous Epith Cells Urine Bacteria Urine Mucus Monoscreen Negative Radiography Diagnostic Testing: Clinical Impression(s) from Imaging Studies Chest X-Ray 12/29/22 20:58 IMPRESSION: No radiographic evidence of acute cardiopulmonary disease. Electronically Signed: Mayo Reyna MD at 21:16 EST , Treatment and Re-Evaluation Narrative: All radiologic examinations were read, reviewed by the emergency department attending. From these reads, a plan of care will be put in place. Patient appears generally well, patient is in no distress. Vital signs are stable. She presents the emergency department for 2 days of generalized f atigue, exhaustion. She denies any specific pain, chest pain shortness of breath. She does have a slight cough.Patient did have a full work-up, patient's CBC showed slight anemia with a hemoglobin of 9.8. On March 2022, hemoglobin was 11.5. The patient is noted to have anemia, she does get her iron checked from her PCP. She will consult with him regarding this, she will need further work- up. There is no evidence of any blood in stool or vomit. Patient's chemistries are slight hyperglycemia the glucose of 166. Patient's TSH was unremarkable, monoscreen was negative. Patient did receive a chest x-ray which was grossly unremarkable. Patient's urinalysis showed some bacteria, no nitrites however some white blood cells and leukocytes, patient has no urinary symptoms. This was sent for culture. At this time, is no evidence to suspect any mono, influenza, COVID-19, pneumonia. Patient will follow-up with her PCP regarding her anemia. She is happy the plan of care, her partner was in the room, he was also given information as well as discharge instructions. Patient was given return precautions. Patient stable for discharge Patient seen and evaluated with RYAN. I personally interviewed and examined the patient. I was involved in all aspects of patient's orders, interpretation of results, and treatment. Patient presents secondary to fatigue and mild cough. She states she is currently getting iron supplements for low iron. She has felt excessively fatigued for the last day or 2 and states this morning she was lying on the couch unable to keep her eyes open. She has 3 young children that she is trying to care for. She states she was concerned about passing out not being able to take care of her children so she came in for evaluation. She denies chest pain or palpitations. Patient sitting upright in bed no acute distress. Alert and talkative. Head and neck examination unremarkable. Heart is regular rate and rhythm. Lung sounds are clear. Abdomen is soft and nontender. Neuro exam is normal with no focal deficits. Lab work reveals normal white count at 10.6. Hemoglobin is 9.8. Last hemoglobin I can find in [facility] is from last summer at which point it was 11.5. Chemistry studies are remarkable only for glucose of 166. Her TSH is normal. COVID, influenza, Monospot test are all negative. Urinalysis does show 2+ bacteria with 10-25 white cells, however 5-10 epithelial cells are noted and no nitrites. Patient is not complaining of urinary symptoms. This is sent for culture but she will not be treated unless culture returns positive. Patient is reassured with the findings today and will follow with her primary care physician. Return instructions given. Discharge Plan Triage Chief Complaint: General Illness ED Midlevel Provider: Olegario Morataya ED Provider: Stephanie Davis Dx/Rx/DC Orders Clinical Impression: Fatigue, Anemia Instructions: Anemia Prescriptions: No Action ferrous sulfate [FeroSul] 325 mg (65 mg iron) tablet 325 mg PO BID Label Comments: TAKE 1 TABLET BY MOUTH TWICE DAILY WITH FOOD ergocalciferol (vitamin D2) 1,250 mcg (50,000 unit) capsule 1,250 mcg PO QWEEK Label Comments: TAKE 1 CAPSULE BY MOUTH ONCE A WEEK Primary Care Provider: Randi Armas NP Referrals: Randi Armas NP, [facility] [Primary Care Provider] - Activity Restrictions/Additional Instructions: Your hemoglobin was 9.8 today on December 29, 2022. Please follow-up with your PCP for further testing. Disposition Disposition: Home, Self Care Discharge Date/Time: 12/29/22 22:22
--- NOTE | 2022-12-29 20:58 | RAD_ITS ---
EXAM: XR CHEST, 2 VIEWS CLINICAL INDICATION: cough TECHNIQUE: Frontal and lateral views of the chest. This report was created using [employer] report generation technology. COMPARISON: 09/25/21. FINDINGS: LUNGS AND PLEURAL SPACES: Unremarkable. No consolidation or edema. No pneumothorax. No effusion. HEART: Unremarkable. Cardiac silhouette not enlarged. MEDIASTINUM: Central airways and mediastinal contour are unremarkable. BONES/JOINTS: Unremarkable. SOFT TISSUES: Unremarkable. RAD/Chest PA and Lateral IMPRESSION: No radiographic evidence of acute cardiopulmonary disease. Electronically Signed: Mayo Reyna MD at 21:16 EST ,
[2022-12-29 21:05] LABS: Mucous, Urine 0 SEEN /hpf (<or=2+)
[2022-12-29 21:09] LABS: Color, Urine Yellow (Yellow); Glucose, Dipstick Normal (Normal); Ketone-Dipstick 5 mg/dl (Negative); Leukocyte Esterase-Dipstick 100 /ul (Negative); Nitrite-Dipstick Negative (Negative); Occult Blood-Urine 25 /ul (Negative); Protein-Dipstick 15 mg/dl (Negative); Urine Bilirubin Dipstick Negative (Negative); Urine Clarity Sl. Cloudy (Clear); Urine Urobilinogen Normal (Normal)
[2022-12-29 21:15] LABS: Squamous Epithelial Cells - UA 5-10 SEEN /hpf (5-10); White Blood Cells 10-25 SEEN /hpf (0-5)
[2022-12-29 21:16] LABS: Bacteria 2+ /hpf (None Seen); Red Blood Cells-Urine 0-5 SEEN /hpf (0-5)
[2022-12-29 21:16] LABS: Absolute Lymphocyte Count 2.46 X10^3/uL (0.83-4.51); Absolute Neutrophil Count 7.1 X10^3/uL (2.0-7.7); Basophil# 0.07 X10^3/uL; Basophil% 0.7 % (0-1); Eosinophil# 0.38 X10^3/uL; Eosinophils% 3.6 % (0-5); Hematocrit 34.5 % (37-47); Hemoglobin 9.8 g/dL (12.0-15.0); Lymphocyte # 2.46 X10^3/ul (0.83-4.51); Lymphocyte % 23.1 % (19-41); Mean Corp Hgb Conc 28.4 g/dL (32-36); Mean Corpuscular Volume 70.3 fL (81-99); Mean Platelet Vol. 11.3 fl (6.2-12.0); Monocyte# 0.55 X10^3/uL; Monocyte% 5.2 % (0-10); NRBC Flagged by Analyzer 0 % (0-5); Neutrophil # 7.13 X10^3/uL (2.7-7.7); Neutrophil % 66.9 % (47-70); Platelet Count 216 K/mm3 (150-450); RBC Distribution Width CV 18.6 % (11.6-14.6); RBC Distribution Width SD 46.3 fl (35.1-43.9); Red Blood Count 4.91 M/mm3 (4.2-5.4); White Blood Count 10.6 K/mm3 (4.4-11.0)
[2022-12-29 21:28] LABS: Internal QC Validated? YES +Cl - CLEAR BKGD; Monotest Negative (Negative)
[2022-12-29 21:38] LABS: Anion Gap 8 (5-15); BUN 9 mg/dL (7-18); BUN/Creat Ratio 10.4 RATIO (10-20); Calcium,Total 8.9 mg/dL (8.5-10.1); Chloride 110 mmol/L (98-107); Creatinine, Serum 0.86 mg/dL (0.55-1.02); EST Glomerular Filtration Rate 79 mL/min (>60); Est Glom Filt Rate - Afr Amer 96 mL/min (>60); Estimated Creatinine Clearance 85.47 ml/min; Glucose 166 mg/dL (74-106); Potassium 3.7 mmol/L (3.5-5.1); Sodium Level 142 mmol/L (136-145); Thyroid Stim Hormone (TSH) 1.89 uIU/mL (0.358-3.74)
[2022-12-29 22:21] VITALS: BP 125/75; PULSE 77; RESP 16; O2SAT 97
== END 2022-12-29 22:22 | disposition home or self-care (01) ==
PROVIDERS: Nurse Practitioner; Emergency Provider Emergency Medicine; PCP Nurse Practitioner Primary Care; Visit Provider Emergency Medicine
DX: D64.9 Anemia, unspecified (principal); R53.83 Other fatigue; F17.210 Nicotine dependence, cigarettes, uncomplicated; Z20.822 Contact with and (suspected) exposure to COVID-19
CPT/HCPCS: 71046; 80048; 81001; 84443; 85025; 86308; 87086; 87088; 87428; 99284; A4216